=== PATIENT | female | born 1945 | race Caucasian/White ===

== ENCOUNTER → 2017-06-25 | Outpatient (CLI) | payer OTHER ==
[~2017-06-25] MED LIST: ADULT LOW DOSE81 MG PO; ASPIRIN81 M2 PO; Alprazolam PO; B-100 COMPLEX1 EAC1 PO; BUPROPION XL150 MG PO; CALCIUM MAGNES1 EAC2 PO; CELEXA40 MG PO; CENTRUM SILVER1 EAC4 PO; CIPROFLOXACIN500 M1 PO; COLACE100 MG PO; DECONGESTANT NA15 ML NASAL; FERRO-TIME325 MG PO; IBUPROFEN 200200 M1 PO; IRON159 MG PO; IRON325 PO; LEVOTHYROXINE 0.1 MG PO; LISINOPRIL20 MG PO; LOVASTATIN 20 M20 MG PO; PRAVACHOL 20 MG20 M1 PO; PRAVACHOL40 MG PO; SERTRALINE HCL50 MG PO; SYNTHROID100 MCG PO; SYNTHROID75 MCG PO; WELLBUTRIN XL150 MG PO
== END ==
LOC: RAD 09:14
DX: S92.901A Unspecified fracture of right foot, initial encounter for closed fracture (principal); X58.XXXA Exposure to other specified factors, initial encounter; Y93.89 Activity, other specified; Y92.89 Other specified places as the place of occurrence of the external cause; Y99.8 Other external cause status

== ENCOUNTER 2018-09-23 11:45 | Inpatient (IN) | payer OTHER ==
[2018-09-23] VITALS (8 sets, daily range): BP systolic 128–169; BP diastolic 65–87
[~2018-09-23] VITALS: Ht 162.6 cm; Wt 61.5 kg
--- NOTE | ~2018-09-23 | HC ---
[facility] [place] [address] CONSULTATION Name: INDY GUTIERREZ Room #: 364-P [facility] IN M.R.#: [id number] Admission: 09/23/18 ������������������ Attend Phys: Daniel Sol MD Discharge: ������������������ Date of : 44 Report #: [id number] THIS REPORT FOR: //name// CC: Daniel Sol DATE OF SERVICE: 09/23/2018 NEPHROLOGY CONSULTATION ATTENDING PHYSICIAN: Dr. Sol. REASON FOR CONSULTATION: Elevated creatinine. HISTORY OF PRESENT ILLNESS: This 72-year-old patient with a history of current and intermittent binge drinking, was found confused, covered in feces and down at home, reporting not having eaten or drunk much in the last few days, having had diarrhea and obviously confused. Her creatinine which previously we felt had been known to be normal, was 4.4, showed mildly elevated lactic acid as well. PAST MEDICAL HISTORY: Includes that of hypertension, the alcoholism as mentioned, hypothyroidism. She apparently also has celiac disease. HOME MEDICATIONS: Vitamins, iron, lovastatin 20 mg daily, sertraline 100 mg daily, lisinopril 20 mg daily, bupropion 150 mg daily, levothyroxine 0.1 mg daily, Ativan 1 mg daily and aspirin. SOCIAL HISTORY: Positive for intermittent alcoholism. No drugs or cigarettes. REVIEW OF SYSTEMS: GENERAL: She has been feeling poorly. EYES: Her vision has been okay. ENT: Hearing okay, swallows okay. Denies mouth sores. ENDOCRINE: No diabetes. She does have the hypothyroidism. RESPIRATORY: Occasionally, she says she feels short winded, but there is no pleuritic pain, cough or hemoptysis. CARDIAC: No chest pain, angina, history of heart failure. GASTROINTESTINAL: She has had poor appetite, diarrhea and nausea. GENITOURINARY: Denies dysuria, hematuria or renal stone disease. NEUROLOGIC: Confusion and some tremulousness, and anxiety. PHYSICAL EXAMINATION: GENERAL: This is a slightly confused, anxious, tremulous patient. SKIN: Very erythematous over the mid-thigh down to below the knee area and her legs. SKELETAL: Shows her to be well developed, well nourished: No amputations. [facility] [address] [place] [address] CONSULTATION Name: INDY GUTIERREZ Room #: 364-P [facility] IN [facility].#: [id number] Admission: 09/23/18 ������������������ Attend Phys: Daniel Sol MD Discharge: ������������������ Date of : 44 Report #: [id number] HEENT: Extraocular movements are full. Vision is intact. No scleral icterus. Hearing intact. Mucous membranes moist. Tongue, buccal mucosa benign. NECK: Supple, no lymphadenopathy. CHEST: Clear. HEART: Regular. ABDOMEN: Slightly tender. EXTREMITIES: Show no edema. Pulses intact. NEUROLOGIC: Just slight confusion. LABORATORY DATA: Hemoglobin 13. She had 36 segs and 35% bands. Her AST is 123, ALT 63. Sodium 143, potassium 4.8, chloride 103, bicarbonate 22, creatinine 4.4, BUN 79, bilirubin is 1, alkaline phosphatase slightly elevated at 149 and CPK 1100. Lactic acid 2.9. ASSESSMENT AND PLAN: Acute kidney injury. Creatinine is up. She is volume depleted. She is getting volume back that is appropriate. This appears to be a result of alcohol withdrawal/binge drinking with alcoholic hepatitis. I suspect we will have to give her plenty of fluids over the next several days. She will need likely some benzodiazepines possibly the vitamin banana bag-type approach and I suspect that she will get better from this with some time and we will follow her along. ��������������������������������������������� ���������������������������������������� By: ��������������������������������������������� 1820 0706 Camilo Patino MD /nt
[2018-09-23] MEDS ORDERED: ATIVAN1 MG PO (12:01)
[2018-09-23 12:13] LABS: HEMATOCRIT 37.6 % (37.0-47.0); MCH 33.1 pg (26.0-34.0); MCHC 34.5 g/dL (28.0-37.0); MCV 95.9 fL (80.0-100.0); PLATELET COUNT 163 thou/uL (150-400); RBC 3.92 mil/uL (4.20-5.00); RDW 13.2 % (10.5-14.5); WBC 9.3 thou/uL (4.0-11.0)
[2018-09-23 12:13] LABS: URINE BLOOD 2+ (Negative); URINE CLARITY CLEAR; URINE COLOR YELLOW; URINE GLUCOSE-RANDOM* NEGATIVE (Negative); URINE KETONES TRACE (Negative); URINE LEUKOCYTES NEGATIVE (Negative); URINE NITRITE NEGATIVE (Negative); URINE PROTEIN (DIPSTICK) 1+ (Negative); URINE SPECIFIC GRAVITY 1.025 (1.005-1.035); URINE UROBILINOGEN 0.2 E.U./dl (0.2-1.0)
[2018-09-23 12:16] LABS: ICTOTEST (BILI CONFIRMATORY) Negative (Negative); URINE BILIRUBIN NEGATIVE (Negative)
[2018-09-23 12:18] LABS: CREATININE 4.4 mg/dL (0.6-1.0); POTASSIUM 4.8 mmol/L (3.5-5.1)
[2018-09-23 12:21] LABS: CRYSTALS None Seen /LPF (None Seen); SQUAMOUS 0-3 Few /LPF (0-3)
[2018-09-23 12:22] LABS: FINE GRANULAR CASTS 0-3 Few /LPF (None Seen); HYALINE CASTS 0-3 Few /LPF (None Seen); URINE WBC 0-5 Rare /HPF (0-5)
[2018-09-23 12:23] LABS: BACTERIA 1-9 Few /HPF (None Seen); URINE RBC 0-2 Rare /HPF (0-2)
[2018-09-23 12:23] LABS: ALBUMIN 3.6 g/dL (3.4-5.0); TOTAL PROTEIN 7.3 g/dL (6.4-8.2)
[2018-09-23 12:52] LABS: ABSOLUTE NEUTROPHILS 6.6 thou/uL (1.4-8.2); METAMYELOCYTES 11 %; MYELOCYTES 1 %; PLATELET ESTIMATE NORMAL
--- NOTE | 2018-09-23 16:13 | EKG ---
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 : 1945 Requested By: Madelin Santana Order Number: [id number] MD: Riki Brannon Measurements Intervals Keno Rate: 100 P: CA: QRS: -22 QRSD: 166 T: 37 QT: 352 QTc: 454 Interpretive Statements Normal sinus rhythm External artifact from possible spinal stimulator Artifact in lead(s) I,II,III,aVR,aVL,aVF Compared to ECG 03/09/2016 09:52:37 Electronically Signed On 09-23-2018 16:12:58 CDT by Riki Brannon [email or web address] ��������������������������������������������� <ELECTRONICALLY SIGNED> ���������������������������������������� By: Riki Brannon MD ��������������������������������������������� 09/23/18 1612 1207 [id number] Riki Brannon MD /EPI
[2018-09-23] MEDS ORDERED: XANAX1 MG PO (16:39)
--- NOTE | 2018-09-23 16:52 | NUR ---
Assumed care of patient when arrived from ER this afternoon. Patient alert and oriented x3, confused and forgetful at times. Able to follow commands. Pleasant. Denies pain. Admission history, education and assessment completed. Medications reviewed with Dr. Sol, allergies verified. Consents signed. Fall precautions in place. Patient with tremors and extremely weak. Bed alarm arm. Bilateral SCDs applied. Patient ordered dinner; gluten-free diet. Sister at bedside throughout admission and is supportive. Too early to determine progression towards POC. Will continue to monitor.
[2018-09-23] MEDS ORDERED: SYNTHROID150 MCG PO (17:47)
--- NOTE | 2018-09-24 04:55 | NUR ---
ASSUMED PT CARE AROUND 1900. PT IS ORIENTED TO SELF AND SOMETIMES PLACE. SHE HAS BEEN MOSTLY CONFUSED DURING THE NIGHT. INCONTINENT OF BOWEL AND BLADDER. PT SLEPT PART OF THE NIGHT. RESP EVEN AND UNLABORED. PRN ANXIETY MEDICATION GIVEN AT BEDTIME. FALL PRECAUTIONS IN PLACE. PT IS FORGETFUL AND IMPULSIVE AT TIMES, TRYING TO GET OUT OF BED. PROGRESSING SLOWLY TOWARD POC GOALS. WILL CONTINUE TO MONITOR FURTHER.
[2018-09-24 05:08] VITALS: BP 173/85
[2018-09-24 05:45] LABS: ALBUMIN 2.8 g/dL (3.4-5.0); CALCIUM 8.3 mg/dL (8.5-10.1); PHOSPHORUS 3.3 mg/dL (2.5-4.9)
[2018-09-24 05:46] LABS: CREATININE 2.4 mg/dL (0.6-1.0); POTASSIUM 3.8 mmol/L (3.5-5.1)
[2018-09-24 06:16] VITALS: BP 166/80
[2018-09-24 06:18] VITALS: BP 159/90
[2018-09-24 08:13] VITALS: BP 179/80
--- NOTE | 2018-09-24 12:43 | NUR ---
Nutrition: Pt admitted with SHERIE, rhabdomyolysis, AMS. Hasn't eaten anything last 3 or 4 days due to thinking someone told her not to eat or drink. Appetite now good with >50% intake at dinner last night, breakfast and lunch today. States is having trouble eating hot foods due to lips being cracked and dry. Assisted in ordering dinner tonight and explained menu order. Hx of celiac disease. Changed diet order to include no gluten. UBW 130 lbs, current 135 lbs. Low nutrition risk.
[2018-09-24 15:43] VITALS: BP 179/81
--- NOTE | 2018-09-24 16:17 | NUR ---
ASSESSMENT: CM REVIEWED CHART AND MET WITH PATIENT AT THE BEDSIDE. PT WAS ADMITTED WITH SHERIE/DEHYDRATION. PT REPORTS SHE RECENTLY MOVED FROM A [facility] INTO AN [facility]DEP[facility]ING [facility] THE [facility]. PT REPORTS SHE HAS A CANE AND A WALKER FOR AMBULATION. PT DENIES HAVING HH IN THE PAST OR BEING TO A SNF. 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 CM DISCUSSED ROLE. PT/OT RECOMMENDING POST ACUTE CARE. CM DISCUSSED THAT THE [facility] HAS A SNF UNIT AND SHE STATES SHE WOULD PREFER TO GO THERE IF NEEDING SNF. PRODUCER DIRECTOR SENDING A REFERRAL TO THE [facility]. CM ALSO SPOKE WITH PATIENTS SON SOHAN VIA PHONE WELL PATIENTS SISTER MATTEO. CM WILL CONTINUE TO FOLLOW TO ASSIST NEEDED.
--- NOTE | 2018-09-24 16:21 | NUR ---
ASSESSMENT: CM REVIEWED CHART AND MET WITH PATIENT AT THE BEDSIDE. PT WAS ADMITTED WITH SHERIE/DEHYDRATION. PT REPORTS SHE RECENTLY MOVED OUT OF A [facility] AND INTO AN INDEPENDENT LIVING APT AT THE [facility]. PT REPORTS SHE USES A CANE AND WALKER THERE FOR AMBULATION WHEN HER LEGS FEEL TIRED. PT REPORTS SHE STILL DRIVES. 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 PT DENIES HAVING HH IN THE PAST OR BEING TO SNF/ACUTE REHAB. PT REPORTS HAVING A GRAB BAR AND SHOWER CHAIR. CM DISCUSSED ROLE. PT/OT RECOMMENDING SNF. CM DISCUSSED THAT THE [facility] HAS A SNF AND PT PREFERS TO GO THERE IF NEEDING SNF. CHARGEBACK ANALYST SENT REFERRAL. CM ALSO SPOKE WITH PATIENTS SON LORENZA WHO LIVES LOCALLY WELL PATIENTS SISTER MATTEO. CM WILL CONTINUE TO FOLLOW TO ASSIST NEEDED.
--- NOTE | 2018-09-24 16:21 | NUR ---
DISCHARGE PLANNING. PATIENT RESIDES AT THE [facility]. POST ACUTE IS RECOMMENDED AT DISCHARGE. PATIENT REQUESTS REFERRAL FAXED TO THE [facility] OF OP FOR POST ACUTE CARE NEEDS. CALL PLACED TO MILENA, THE [facility] GUEST SERVICES AMBASSADOR, PER UNIT SW TO NOTIFY OF DISCHARGE PLAN AND REFERRAL FAXED. ANTICIPATED DISCHARGE IS ONE TO TWO DAYS. MILENA TO REVIEW REFERRAL AND CONTACT CM ONCE COMPLETE. FOLLOWING TO ASSIST WITH DISCHARGE NEEDS.
--- NOTE | 2018-09-24 18:13 | NUR ---
ASsumed care of PT at 0700. PT AOX2 forgetful with mild confusion. labs improving. iv fluids infusing per order. improving at calling out before attempting to get out of bed. all fall precautions in place. several soft stools today. worked with PT/OT. sitting in chair for most of day. otherwise pleasant. hypertensive this AM - physician notified - home bp meds resumed. sinus on telemetry. will cont to monitor.
[2018-09-24 20:44] VITALS: BP 184/99
--- NOTE | 2018-09-25 05:09 | NUR ---
Patient has been confused and very impulsive throughout the shift. Patient has tried to get up multiple times on her own and sets bed alarm off even though she has been reminded to use the call light. The patient has been incontinent of urine and incontinent of stool. The patient has wet the bed 6-7 times thus far. A stool sample was sent down to rule out cdiff as the patient had several stools today from dayshift report and had 2-3 this evening. Patient placed on special contact until further notice of cdiff result. The patient has been recieving her banana bag per orders and drinking water. Bed alarm on and call light within reach.
[2018-09-25 05:19] LABS: ALBUMIN 2.9 g/dL (3.4-5.0); CALCIUM 9.1 mg/dL (8.5-10.1); PHOSPHORUS 2.5 mg/dL (2.5-4.9); POTASSIUM 3.1 mmol/L (3.5-5.1)
[2018-09-25 05:20] LABS: CREATININE 1.3 mg/dL (0.6-1.0)
[2018-09-25 05:26] VITALS: BP 167/83
[2018-09-25 07:40] VITALS: BP 165/89
[2018-09-25 13:00] VITALS: BP 173/90
--- NOTE | 2018-09-25 14:04 | NUR ---
SW reviewed chart and spoke with nursing and attending physician. Pt is progressing towards goals for discharge. Discharge to [facility] is anticipated in 1-2 days. [facility]F confirmed they are able to accept pt when she is ready for discharge. BASHIR is following to assist as needed with discharge planning.
[2018-09-25] MEDS ORDERED: IBUPROFEN 200200 M1 PO (14:56)
[2018-09-25] MEDS ORDERED: FISH OIL 1,001000 M2 PO (14:56)
--- NOTE | 2018-09-25 17:00 | NUR ---
Assumed care of Pt at 0700. Pt AOx2 forgetful and episodes of confusion. impulsive at times, making several attempts to get up without calling. frequently reminded to call out, and occasionally does. other times she requests for bed alarm to be turned off. incontinent at times. frequent soft stools. cdif results pending. sinus on telemetry. blood pressures remain high - physician aware. all fall precautions in place. kidney function showing good improvement. iv fluids infusing per order. good progress toward poc goals.
[2018-09-25 20:11] VITALS: BP 174/92
[2018-09-26 00:09] VITALS: BP 184/98
[2018-09-26 00:48] VITALS: BP 167/92
[2018-09-26 05:14] VITALS: BP 158/92
--- NOTE | 2018-09-26 06:22 | NUR ---
Pt. very impulsive and forgetful when awake. Frequent reorientation given. Bed alarm on. Scheduled potassium given for hypokalemia. Up with assist to commode. Banana bag infusing per order. Will continue to monitor.
[2018-09-26 08:01] VITALS: BP 158/92
--- NOTE | 2018-09-26 09:45 | NUR ---
Assumed patient care at 0700. alert to self. impusive out of bed and room that try to go home. pulled iv out. patient will dc to 528 soon.
--- NOTE | 2018-09-26 09:56 | NUR ---
ON-GOING ASSESSMENT: CM REVIEWED CHART AND SPOKE WITH ATTENDING. HE [facility] AND SPOKE WITH DR. MARIN AND PT WILL BE ADMITTED TO [facility]. DR. RIVAS HAD REACHED OUT TO PATIENTS SON/DPOA CRISTAL [phone]. CM ATTEMPTED TO CONTACT CRISTAL BUT UNABLE TO REACH AND VM WAS LEFT. CM ALSO SPOKE WITH PATIENTS OTHER SON LORENZA WHO STATES HE WAS AWARE OF THE DISCHARGE PLAN TO [facility] STATING HE HAD SPOKEN WITH HIS BROTHER CRISTAL WHO IS ALSO A PHYSICIAN AND SPOKE WITH DR. RIVAS. PT IS AGREEABLE TO PLAN. CM WILL CONTINUE TO FOLLOW TO ASSIST NEEDED.
== END 2018-09-26 10:28 | DRG 682 ==
LOC: ER 11:45 → 3W 14:16 → EROBS 14:16 → 3W 15:26 → ENTRNSPT 09-26 09:59 → EDTRNSPTSTS 09-26 10:06 → 3W 09-26 10:28
PROVIDERS: Emergency Medicine; Hospitalist; ADMIT Family Medicine
DX: N17.0 Acute kidney failure with tubular necrosis (principal); G93.41 Metabolic encephalopathy; M62.82 Rhabdomyolysis; E87.2 Acidosis; F10.10 Alcohol abuse, uncomplicated; I10 Essential (primary) hypertension; E78.5 Hyperlipidemia, unspecified; F32.9 Major depressive disorder, single episode, unspecified; F41.9 Anxiety disorder, unspecified; E03.9 Hypothyroidism, unspecified; Z88.8 Allergy status to other drugs, medicaments and biological substances; E86.0 Dehydration; F03.90 Unspecified dementia, unspecified severity, without behavioral disturbance, psychotic disturbance, mood disturbance, and anxiety; E86.9 Volume depletion, unspecified; K90.0 Celiac disease; Z79.82 Long term (current) use of aspirin; Z79.899 Other long term (current) drug therapy
CPT/HCPCS: 10879

== ENCOUNTER 2018-09-26 11:04 | Inpatient (IN) | payer OTHER ==
[~2018-09-26] VITALS: Ht 160 cm; Wt 60.4 kg
[~2018-09-26 11:04] MED LIST changes: +ATIVAN1 MG PO; +FISH OIL 1,001000 M2 PO; +SYNTHROID150 MCG PO; +XANAX1 MG PO
[2018-09-26 13:33] VITALS: BP 130/70
--- NOTE | 2018-09-26 14:04 | NUR ---
PATIENT ADMITTED TO ROOM 528B, ORDER DR. FERNANDES FOR SCHIZOPHRENIA. VSS, A&O X 3, WEIGHT 132.9 POUNDS, HEIGHT 5 FEET 3 INCHES, PER BED SCALES AND PATIENT'S REPORT R/T HEIGHT. ASSESSMENT WILL BE COMPLETED BY Corrine
[2018-09-26 20:12] VITALS: BP 166/91
--- NOTE | 2018-09-27 03:31 | NUR ---
ASSUMED CARE @ 19:15. IN ROOM IN BED FOR ASSESSMENT HRRR, LUNGS CTA ALL CLAROS, ABD SOUNDS HYPER ACTIVE. REPORTS BM TODAY. ORIENTED X4. AGE IS 73, TURNS 74 Y.O. ON SaturdaySEPTEMBER 29. DIET IS REGULAR CONSISTENCY, GLUTEMN FREE DIET. REPORTS IS HERE IN THE HOSPITAL D/T A FALL ON THE FLOOR, INJURING HER KNEE. USES WALKER TO AMBULATE, CONTINENT OF B&B. DOES NOT MENTION ALCOHOL ABUSE OR DEPRESSION. 2100 MEDS TAKEN WITH PUDDING TO HELP SWOLLOW LARGE TABLETS. WILL CONTINUE TO MONITOR.
--- NOTE | 2018-09-27 06:25 | NUR ---
SLEPT WELL ALL NOC. SLEPT TOTAL OF 11.8 HOURS.
[2018-09-27 07:00] VITALS: BP 108/77; BP 121/75
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
--- NOTE | 2018-09-27 12:52 | NUR ---
ASSUMED PATIENT CARE AT 0700; PATIENT UP IN DR AT THAT TIME, AWAITING BREAKFAST. PATIENT ATE 100% OF BREAKFAST, ALSO 100% OF LUNCH. RELAXED MOOD, HAPPY AFFECT, NO BEHAVIORS AT THIS TIME. NEW ORDER PER ROB SKELTON FOR XANAX. FIRST DOSE GIVEN AT APPROXIMATELY 10:45.
[2018-09-27 21:02] VITALS: BP 141/87
--- NOTE | 2018-09-28 04:59 | NUR ---
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
[2018-09-28 07:50] VITALS: BP 99/76
--- NOTE | 2018-09-28 11:50 | NUR ---
ASSUMED PATIENT CARE AT 0700. PATIENT AWAKE IN HER ROOM AT THAT TIME. PRESENTED FOR BREAKFAST, ATE 100% OF MEAL. RELAXED AFFECT, NO BEHAVIORS, SUCH AGITATION, AT THIS TIME. INTERACTIVE BEHAVIOR, CONVERSIVE WITH A MALE PEER. COMPLIANT WITH MEDICATIONS, DID NOT TRY TO GET ANY EXTRA MEDICATIONS AT THIS TIME, SPECIFICALLY XANAX. CONTINUE TO MONITOR.
--- NOTE | 2018-09-28 12:02 | NUR ---
Pt was alert and oriented during the assessment. Pt seemed nervous and jittery during the assessment. Pt denied ETOH abuse stating she stopped drinkin a few weeks ago. When asked why Pt stated, " with my ex 's passing I feel I need to be here for my boys and I need to be health for that". Pt admitted to drinking vodka and wine daily prior to stopping. Pt denied any withdrawl symptoms such as seizures or tremors. Pt stated she living in an independen living apartment at the [facility]. Pt did not believe she needed to transition to assisted living or fci care. Pt stated she is able to continue being independent. Pt denied recieving any outpt services to assist with ETOH abuse. Pt stated " I have never been comfortable talking to a therapist, I find it hard to open up". Pt reported her PCP, Dr. Sol, prescribes her Xanax for anxiety. When asked about her depression diagnosis, Pt stated, " Well its's more anxiety, not depression". Pt did not seem to be honest concerning her mental health or her hx of alchol abuse. Pt was not open to any out patient services. Pt also denied having kidney failure stating, " No I don't have Kidney Failure, I believe it was just dehydration". Pt had no other questions or concerns during this assessment
[2018-09-28 20:28] VITALS: BP 133/83
[2018-09-29 02:37] VITALS: BP 133/83
--- NOTE | 2018-09-29 02:51 | NUR ---
PT OUT IN DAY AREA WITH PEERS, INTERACTING APPROPRIATLY. A LITTLE TENSE, AND REMINDE ME SHE WANTED HER MEDS SOON POSSIBLE, SHE WAS GOING TO BED TO READ. SPECIFICALLY WANTED XANAX TO "HELP ME SLEEP". SLEPT WELL THROUGH THE NIGHT TO THIS POINT.
--- NOTE | 2018-09-29 10:37 | NUR ---
[id number]: Report rec from [facility] shift, care assumed. Ambulatory with walker in [place] to DR, feeds self, appetite good. Takes meds whole w/o difficulty. Mild anxiety noted, pt request Xanax after a.m. therapy group. Denies pain or discomfort at this time.
[2018-09-29 19:41] VITALS: BP 134/75
--- NOTE | 2018-09-30 01:49 | NUR ---
SITTING IN DAYROOM WITH PEERS UPON INITIAL ASSESSMENT THIS PM-SUPERFICIAL BUT PLEASANT WHEN ENGAGED IN 1;1 WITH NURSING STAFF-DENIES PAIN/DISCOMFORT-CONSTRICTED AFFECT AND GUARDED AT TIMES. DOES REPORT ANXIETY RATED A N8 ON 1-10 SCALE-REQUESTED/RECEIVED PO PRN XANAX 0.25MG AT 2029 ALONG WITH HS MEDS-TO BED AT 0-DENIES SI/SH/HI
--- NOTE | 2018-09-30 08:20 | NUR ---
ADM XANAX 0.25MG PO PER PATIENT REQUEST.
[2018-09-30 08:30] VITALS: BP 131/76
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
--- NOTE | 2018-09-30 12:20 | NUR ---
PSYCHOSOCIAL ASSESSMENT Diagnosis: MAJOR NEUROCOGNITIVE DISORDER Admit Date: 09/26/18 Psychiatrist: DENA Symptoms associated with current admission: Hallucinations Others Presenting problems: Pt was delusional and hallucination. Depression and alcohol. Precipitating Factors: Non-compliance psychothx Alcohol/drug use Non-compliance medication Comments: Pt has been doing alochol for several years. History of High Risk Behavors: Other Suicide Risk Factors: A A-Signs of alcohol/substance abuse w/ suicide ideation B-Recent suicidal thoughts or attempts C-Recent thoughts or attempts of harming someone else D-Altered mental status due to psychiatric/chem dep etiology E-The behavior exists - add comment PSYCHIATRIC HISTORY Age of onset: 73 Prior hospitalizations: Denies hx hospitalization Hospital names and dates, if available: Pt denies prior hospitalization Most Recent Outpatient HX: Psychiatrist Additional information: Legal Status: Voluntary Guardian/Conservatorship type: DPOA Contact name: Dejon Serrano Contact phone: Other: Name: Phone: Other legal issues: (Arrests/convictions Current Status) DUI P.O. Name and Phone #: FAMILY HISTORY Place of : [place], [place] Raised in: [place], [place] # Siblings & order: Pt has 3 sibilings, and second Describe relationships within family of origin: Pt is very close to her sister and brothers. Pt has strong relationship with her family. Any psychiatric or substance abuse problems within family of origin: Y Has patient been sexually or physically abused, neglected or been taken advantage of financially? N Has the abuse been reported? N Other pertinent family information: Marital history/significant relationships: Domestic violence: N Children ages & who is caring for them: Pt has two choldren Is child welfare involved? N Drug history: Pt being drinking Rum Alcohol Use: Yes, current Frequency: Weekly Quantity: bottle a couple days Have you ever felt you ought to Cut down on drinking? Have people Annoyed you by criticizing your drinking? Have you ever felt bad or Guilty about your drinking? 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 AXIS SCREENING TOOL [place] I Mood Disorders: Depression [place] II Personality/Mental Retardation: [place] III Medical Impairment: HTN [place] IV Problem(s) with: Primary support group Other psych/environ prob [place] V: 50-Serious w/impairment Additional [place] comments: PERSONAL BACKGROUND Relevant cultural issues (ethnicity, values, beliefs, spiritual): Spiritual Muslim: Pentecostal Importance of faith to patient: High What hobbies/interests does the patient have? Read Cross words puzzle Cards Sexual orientation (relevant impact to current treatment): Heterosexual : Where did you serve: Branch of service: Rank: Discharge status: Are you a combat ? N Occupational/Work: Do you work? N Do you want to work? N How many hours do you work/week? 0 How many jobs have you had in the past 5 years? 0 Do you need assistance finding a job? N Does the patient need assistance in job training? N Source of income: SSI Does patient have a Payee? Y Payee name: Alex Serrano Approximate monthly income: 1000 Does patient have adequate funds for next 30 days? 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 is living: [facility] Does the patient plan to continue there after DC? Yes Patient lives with: Alone Will family/significant other be involved in treatment? Other community support services utilized: none reported Support System Available (family/friend) Name: Jade Wagner Relationship: Sister Name: Raul Serrano Phone: Relationship: SON Name: Jade Wagner Phone: Relationship: Sister Patient strengths: Family support Motivated Insight Patient's assets: Positive support system Verbal Patient's weaknesses: Chronic hx mental illness Health problems Additional weaknesses: Pt is very depressed, and utilize alcohol as coping skill. Patient's perception of current rn social services/case management needs: Pt stated that SS is someone that helps when need assistance. PRELIMINARY DISCHARGE PLAN Discharge plan/Community resource contacts: Pt will be discharge to [facility] Discharge needs: Pt sister Jade will transport pt back to the facility. Problems anticipated on discharge: Compliance w/ med regimen Comments: (factors affecting DC plan/pt. response/interventions) Pt will need a Php program for outpatient services
--- NOTE | 2018-09-30 17:45 | NUR ---
DR. FERNANDES TALKED WITH PATIENT AND SON ABOUT CT RESULTS. PT NOT ANXIOUS ABOUT HER PLAN OF DISCHARGED. PT PARTCIPATED IN GROUPS TODAY.
[2018-09-30 19:56] VITALS: BP 133/84
--- NOTE | 2018-09-30 23:04 | NUR ---
VISIBLE IN [place] INTERACTING WITH PEERS-WATCHING TV UPON INITAL ASSESSMENT THIS PM-DENIES C/O PAIN/DISCOMFORT-FULL RANGE AFFECT-DESCRIBES MOOD "RESTLESS-I'M READY TO GET OUT OF HERE -I'M NOT REALLY SURE WHAT THE PLAN IS AND I DON'T LIKE THAT" DOES RESPOND TO SUPPORT/REASSURANCE FROM NURSING-REPORTS FEELING "FRUSTRATED" WITH UNIT RULES/RESTRICTIONS ECT-BUT IS COMPLIENT/COOPERATIVE NO PHYSICAL OR VERBAL AGITATION NOTED OR REPORTED-REQUSTED AND RECEIVED XANAX 0.25MGPO PRN AT 2030 FOR ANXIETY RATED 6 ON 1/10 SCALE
[2018-10-01 07:14] LABS: HIV ANTIBODY Non Reactive (Non Reactive)
[2018-10-01 07:42] VITALS: BP 137/65
--- NOTE | 2018-10-01 08:34 | NUR ---
ADM XANAX 0.25MG PO FOR ANXIETY.
[2018-10-01 09:30] VITALS: BP 137/65
--- NOTE | 2018-10-01 09:30 | NUR ---
PT TOOK MEDS THIS AM WITHOUT ANY ISSUES. PT DENIES ANY PAIN. PT LUNGS CLEAR AND ON ROOM AIR.
--- NOTE | 2018-10-01 15:32 | NUR ---
PT HAS BEEN PARTICIPATING IN GROUPS TODAY. PT STILL PATIENT ABOUT BEING HERE.
[2018-10-01 17:07] LABS: SYPHILIS AB Negative (Negative)
--- NOTE | 2018-10-01 17:30 | NUR ---
PT UPSET ABOUT ANOTHER PATIENT STATING IF YOU DON'T CALL POLICE I WILL. PT STATED WHY ARE YOU CONDONING HIS BEHAVIOR. PT STATED THE PATIENT HAS BEEN IN HER ROOM. WILL KEEP HER ROOM DOOR SHUT UNTIL PT NEEDS TO USE BATHROOM.
[2018-10-01 19:46] VITALS: BP 146/72
--- NOTE | 2018-10-01 23:45 | NUR ---
REPORTS DAY "GOOD" " A LITTLE NERVEWRACKING I TOOK ALL THESE TESTS AND I AM NOT SURE HOW I DID" IS VISIBLE IN DAYROOM INTERACTING WITH PEERS-DURING 1;1 REPORTS FEELING UPSET THAT SHE IS STILL HERE AND ISN'T SURE SHE "TRUSTS" THE DR./HER SONS TO DETERMINE WHAT DC PLAN IS BEST FOR HER-MILDLY SUSPICIOUS/GUARDED STATING "I JUST DON'T WANT THEM TO PULL SOMETHING OVER ON ME"XANAX 0.25MGPOPRN AT 2100 FOR ANXIETY. DENIES C/O PAIN/DISCOMFORT. FULL RANGE AFFECT
[2018-10-02 07:30] VITALS: BP 127/72
--- NOTE | 2018-10-02 09:44 | NUR ---
SW schedule a family meeting on today, at 4:00pm. SW notified th US to allow pt to have phone to conference in the nephew who is the pt DPOA. BASHIR will follow-up with the pt upon discharge.
[2018-10-02 10:03] VITALS: BP 150/94
--- NOTE | 2018-10-02 12:48 | NUR ---
PATIENT PLEASANT AND COOPERATIVE. MAKES NEEDS KNOWN. WELL GROOMED AND NEAT IN APPEARANCE. AMBULATORY AND HANDLES OWN ADL'S VERY WELL. GOOD APPETITE - MED COMPLIANT. DID CONVEY GRIEVANCE ABOUT INABILITY TO GO BACK TO [facility]. CLAIMS DOES NOT HAVE ASSISTED LIVING AT HER FACILITY. NO HAPPY ABOUT THIS. STATED HAD FEVER BLISTER ON LOWER LIP THAT WAS PAINFUL AND SORE. ADVISED DR. FERNANDES AND ENTERED ORDER FOR DOCOSANOL OINMENT TID. APPLIED FIRST TREATMENT AT 0930. STATED DISCOMFORT IMPROVED. AMBULATORY - GOAL TODAY TO TAKE SHOWER TODAY WITHOUT MESSING HAIR UP - NO AVAILABLE SHOWER CAP.
[2018-10-02 20:13] VITALS: BP 140/80
--- NOTE | 2018-10-02 20:23 | NUR ---
ASSUMED CARE @ 19:15. SITTING IN DAY ROOM ON THE COUCH WATCHING TV WITH PEERS. COOPERATED IN ASSESSMENT. HRRR, LUNGS CTA ALL CLAROS, ABD NORMO X4 Q. WILL CONTINUE TO MONITOR.
--- NOTE | 2018-10-02 21:55 | NUR ---
ABREVIA OINTMENT PROVIDED FOR COLD SORE. PT TOOK DEPAKOTE WITH WATER WITHOUT DIFFICULTY. ASKED ABOUT XANAX, AND WHEN TOLD IT HAD BEEN DISCONTINUED, SAID THAT SHE HAD TAKEN IT FOR YEARS, AND FEELT LIKE SHE CONTINUES TO NEED IT. WILL CONTINUE TO MONITOR.
[2018-10-02 21:59] VITALS: BP 140/80
--- NOTE | 2018-10-03 00:12 | NUR ---
NEW ORDERS ACK FOR LIGAGLIPTIN 5 MG FOR 0900, CODE STATUS: NO CODE, MONITOR BLOOD GLUCOSE AC/HS. CONSULT PHYSICIAN LAURENCE MCNULTY. EVA TOBAR N.P. ADVISED OF CONSULT @ 00:05. SHE ADVISED THAT DR MCNULYT WILL CONTINUE TO FOLLOW PATIENT, AND NO FURTHER NOTIFICATION IS NECESSARY.
--- NOTE | 2018-10-03 06:38 | NUR ---
Slept 6 hours NOC.
[2018-10-03 07:00] VITALS: BP 144/70
[2018-10-03 09:19] VITALS: BP 144/70
--- NOTE | 2018-10-03 09:49 | NUR ---
BASHIR left a voicemail with Eloisa to schedule transport for pt discharge. BASHIR provided contact information to return phone. BASHIR will follow-up with the facility upon discharge.
--- NOTE | 2018-10-03 09:50 | NUR ---
ASSUMED CARE OF PT APPROX 0715, SHE'S A&0X4, AMB STEADY, WAS IN DAY ROOM READING AT BEGINNING OF SHIFT. EXPRESSES DELIGHT AT BEING DISCHARGED THIS AFTERNOON. DENIES ANY PAIN OR NEED FOR TYLENOL PRN, BM IS UNK, AND NO DISTRESS W/GI SYSTEM AT THIS TIME. REPORT OF XANAX HAVING BEEN TAPERED AND DISCONTINUED LAST NIGHT WHICH GAVE PT GREAT DISTRESS. WILL CONTINUE TO MONITOR. IS CURRENTLY IN DAY ROOM PARTICIPATING IN GROUP.
[2018-10-03] MEDS ORDERED: ACCUPRIL40 MG PO (13:58)
[2018-10-03] MEDS ORDERED: DEPAKOTE ER500 MG PO (14:02)
[2018-10-03] MEDS ORDERED: ASPIRIN81 M2 PO (14:02)
[2018-10-03] MEDS ORDERED: WELLBUTRIN XL150 MG PO (14:03)
[2018-10-03] MEDS ORDERED: SYNTHROID75 MCG PO (14:04)
[2018-10-03] MEDS ORDERED: ABREVA2 GM TOP (14:05)
--- NOTE | 2018-10-03 14:14 | NUR ---
Patient Name: INDY GUTIERREZ Admission Date: 09/26/18 DISCHARGE PLAN: Pt will be discharging to [facility]. Care Assessment: Pt was assessed by Dr. Sinha, and diagnosed with Major Neurocognitve Disorder, and Substance Abuse with Unspecified Depression. Level II Assessment: None Transportation: Pt will be transported to by pt sister Jade. Special Instructions/Notes: Pt will have continuance care through [facility] on November 10, 2018 at 1:30pm. Pt will have follow-up with Dr. Díaz on October 17, 2018 at 9:45am. DISCHARGE TO FACILITY: Assisted Living Facility: [facility] Fax: Address: [address] [place] [address] Contact Name: Eloisa PCP: FRANCESCA Psychiatrist: [facility].
--- NOTE | 2018-10-07 09:25 | D ---
[facility] [place] [address] DISCHARGE SUMMARY Name: INDY GUTIERREZ Room #: 528B-B [facility] IN ..#: [id number] Admission: 09/26/18 ������������������ Attend Phys: Valente Jama DO Discharge: 10/03/18 ������������������ Date of : 43 Report #: [id number] THIS REPORT FOR: //name// CC: Valente Sol DATE OF SERVICE: 10/03/2018 INPATIENT PSYCHIATRIC DISCHARGE SUMMARY ATTENDING PHYSICIAN: Valente Jama DO VENDOR MANAGEMENT SPECIALIST: Daniel Sol MD DISCHARGE DIAGNOSES: Major neurocognitive disorder, unspecified, mild degree, without behavioral disturbance; unspecified depression, improved; substance use disorder for alcohol, moderate degree. DISCHARGE PLAN: At the request of the patient and her 2 sons, she is discharged back to independent living at the [facility]. It should be noted recommendation was made by this author for discharge to assisted living level of care, which was declined by the patient and her sons including 1 as her DPOA. DISCHARGE MEDICATIONS: The patient's current medication regimen is as follows: Lisinopril 20 mg p.o. daily for hypertension, aspirin 81 mg p.o. daily, Depakote ER 750 mg p.o. at bedtime, bupropion hydrochloride 150 mg p.o. daily, levothyroxine 75 mcg p.o. daily; docosanol which is Abreva 2 grams cream; 1 gram topical t.i.d. for an additional 5 days for fever blister. The patient should not take any more benzodiazepines. The patient needs to maintain absolute abstinence from alcohol. The patient was warned that the combination of alcohol, potential for alcohol withdrawal as well as bupropion raise possibility of a seizure substantially and that needs to be considered in her behaviors. Presently, the patient is declining to participate in Alcoholics Anonymous. Followup is with psychiatrist at [facility] within 4 weeks. Neuropsychiatric consult on November 10 at 1:30 p.m. Follow up with Dr. Sol on 10/17/2018 at 9:45 a.m. DIET: Maintain regular diet. REASON FOR ADMISSION: As follows: The patient was admitted medically in [facility] area. She became delirious, was exit seeking. Dr. Sol referred her for admission. HOSPITAL COURSE: The patient was admitted to Geriatric Psychiatry Unit. The tapering of her benzodiazepine commenced. Neuropsychological testing was done by Dr. Mohamud, which found the mild dementia. One of her sons visited [address] [address] DISCHARGE SUMMARY Name: INDY GUTIERREZ Raffaele Room #: 528B-B [facility] IN [facility].#: [id number] Admission: 09/26/18 ������������������ Attend Phys: Valente Jama DO Discharge: 10/03/18 ������������������ Date of : 43 Report #: [id number] frequently is Alex. Her other son, Carlos, who is a metal pathologist in [place] is awaited conference, but maintained telephone contact. Also, her sister, Jade, visited, so she had significant family support. Laboratories were limited from the psychiatric admission as they had been none during the medical admission. B12 level was actually supratherapeutic at 2586, vitamin D 39.5. Valproic acid level was 57. Actually, Dr. Sol had started her on Depakote. HIV was negative. Syphilis was negative. This was all done as part of dementia workup. Neuroimaging revealed a fairly normal appearing brain for female in her mid 70s. Her son who was actually formally radiologist had believed he has looked at some brain scans of her in the past. The only thing I would somewhat question is there is some subtle evidence of ventricular dilatation due to chronic alcoholism; however, this is just this author's opinion. MENTAL STATUS EXAMINATION: Vital Signs: On the day of discharge, temperature 36.9, pulse 86, respirations 16, BP 144/70. This is a well-developed, well-nourished female appearing her stated age. Attention intact. Concentration intact. Speech normal rate, rhythm and tone. Thought process is linear and goal directed. Thought content focused on discharge. No psychomotor agitation, no psychomotor retardation. Mood and affect congruent, euthymic, fair range. Denies SI, HI. Denies hopelessness and helplessness. Denies homicidal intent or plan. Memory not formally tested today. Insight fair. Judgment is fair to limited. Fund of knowledge average range. Additional notes, both the SLUMS and the MoCA on this admission were 17 out of 30 and 19 out of 30 respectively. Prognosis for this patient is guarded given the fact that she is returning to [place], has major neurocognitive disorder, has a history of alcoholism and has a less than optimal motivation for dual diagnosis treatment at this point. Supposedly as well, there is a psychotherapist to see the patient that facility has been asked to arrange. ��������������������������������������������� <ELECTRONICALLY SIGNED> ���������������������������������������� By: Valente Jama DO ��������������������������������������������� 10/07/18 0925 [id number] Valente Jama DO /nt
== END 2018-10-03 14:30 | disposition home or self-care (01) | DRG 57 ==
LOC: SBH 11:04
PROVIDERS: ADMIT Psychiatry & Neurology Psychiatry
DX: G30.9 Alzheimer's disease, unspecified (principal); N17.9 Acute kidney failure, unspecified; M62.82 Rhabdomyolysis; F02.81 Dementia in other diseases classified elsewhere, unspecified severity, with behavioral disturbance; F01.51 Vascular dementia, unspecified severity, with behavioral disturbance; F32.9 Major depressive disorder, single episode, unspecified; I10 Essential (primary) hypertension; E78.5 Hyperlipidemia, unspecified; E03.9 Hypothyroidism, unspecified; Z96.642 Presence of left artificial hip joint; F41.1 Generalized anxiety disorder; Z88.8 Allergy status to other drugs, medicaments and biological substances; Z87.81 Personal history of (healed) traumatic fracture; Z98.49 Cataract extraction status, unspecified eye; Z79.82 Long term (current) use of aspirin; Z79.899 Other long term (current) drug therapy
CPT/HCPCS: 10880

== ENCOUNTER 2019-03-05 07:00 | Inpatient (IN) | payer OTHER ==
[2019-02-23 13:39] LABS: URINE BILIRUBIN NEGATIVE (Negative); URINE BLOOD NEGATIVE (Negative); URINE CLARITY SL CLOUDY; URINE COLOR YELLOW; URINE GLUCOSE-RANDOM* NEGATIVE (Negative); URINE KETONES TRACE (Negative); URINE NITRITE-REFLEX NEGATIVE (Negative); URINE PROTEIN (DIPSTICK) NEGATIVE (Negative); URINE SPECIFIC GRAVITY 1.015 (1.005-1.035); URINE UROBILINOGEN 0.2 E.U./dl (0.2-1.0)
[2019-02-23 13:44] LABS: HEMATOCRIT 35.4 % (37.0-47.0); HEMOGLOBIN 12.1 gm/dL (12.0-15.0); MCH 32.7 pg (26.0-34.0); MCHC 34.2 g/dL (28.0-37.0); MCV 95.7 fL (80.0-100.0); RBC 3.69 mil/uL (4.20-5.00); RDW 13.1 % (10.5-14.5); WBC 4.1 thou/uL (4.0-11.0)
[2019-02-23 13:46] LABS: URINE LEUKOCYTES-REFLEX 3+ (Negative)
[2019-02-23 13:48] LABS: ALBUMIN 4.1 g/dL (3.4-5.0); CALCIUM 9.8 mg/dL (8.5-10.1); CREATININE 1.2 mg/dL (0.6-1.0); POTASSIUM 4.2 mmol/L (3.5-5.1)
[2019-02-23 13:52] LABS: PROTIME 10.5 Seconds (9.3-11.4)
[2019-02-23 13:56] LABS: BACTERIA-REFLEX >30 Many /HPF (None Seen); CASTS None Seen /LPF (None Seen); CRYSTALS None Seen /LPF (None Seen); SQUAMOUS None Seen /LPF (0-3); URINE RBC None Seen /HPF (0-2); URINE WBC-REFLEX >25 Many /HPF (0-5)
[~2019-03-05] VITALS: Ht 162.6 cm; Wt 56.2 kg
[~2019-03-05 07:00] MED LIST changes: +ABREVA2 GM TOP; +ACCUPRIL40 MG PO; +ASPIR 8181 MG PO; +BUPROPION XL300 MG PO; +DEPAKOTE ER500 MG PO; +LOVASTAT40 PO; +MULTIVITAMINS PO; +SYNTHROID125 MC1 PO; +ZOLOFT100 MG PO
[2019-03-05 09:26] VITALS: BP 112/59
[2019-03-05 16:44] VITALS: BP 123/64
[2019-03-05 20:19] VITALS: BP 108/62
--- NOTE | 2019-03-05 20:47 | NUR ---
PATIENT ALERT AND ORIENTED WITH SISTER FELIPE AT BEDSIDE ARRIVING ON 4S UNIT ROOM 436 ABOUT 1700. HOME MEDS PRESCRIBE BY NANCY AT BEDSIDE. PATIENT TO REVIEW WITH DR. RIVAS IN THE AM. REVIEWED HIP PRECAUTIONS WITH PATIENT AND PATIENT URINATING. SEND UA TO LAB. PATIENT EATING DINNER. PATIENT DIDN'T WANT PAIN MEDS WHEN AFTER ARRIVING ON 4S UNIT.
[2019-03-05 21:04] LABS: URINE BILIRUBIN NEGATIVE (Negative); URINE BLOOD NEGATIVE (Negative); URINE CLARITY CLEAR; URINE COLOR YELLOW; URINE GLUCOSE-RANDOM* NEGATIVE (Negative); URINE KETONES NEGATIVE (Negative); URINE LEUKOCYTES-REFLEX TRACE (Negative); URINE NITRITE-REFLEX NEGATIVE (Negative); URINE PROTEIN (DIPSTICK) NEGATIVE (Negative); URINE UROBILINOGEN 0.2 E.U./dl (0.2-1.0)
[2019-03-06 00:40] VITALS: BP 120/63
[2019-03-06 03:41] LABS: HEMATOCRIT 25.2 % (37.0-47.0); HEMOGLOBIN 8.4 gm/dL (12.0-15.0); MCH 31.9 pg (26.0-34.0); MCHC 33.4 g/dL (28.0-37.0); MCV 95.4 fL (80.0-100.0); RBC 2.64 mil/uL (4.20-5.00); RDW 12.7 % (10.5-14.5); WBC 5.8 thou/uL (4.0-11.0)
--- NOTE | 2019-03-06 04:34 | NUR ---
ASSUMED CARE AROUND 1899. AXOX4. S/P R HIP OA. ELGIN DRESSING CDI. HEMOVAC INTACT DRANING BRIGHT RED BLOOD. IN THE BEGINNING OF THE SHIFT, PT REFUSED SCD THAT THEY HURT AND SHE DOES NOT WANT THEM. EDUCATED ABOUT THE IMPORTANCE ABOUT DVT PREVENTION. 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 LATER ON PT CALLED AND STARTED SCREAMING THAT [facility] ARE TOO TIGHT AND HOT THAT IT'S MAKING PT SO UPSET. TOOK [facility] AND ADVISED PT OF ANTI-EMBOLISM PREVENTION. PER PT, BEING AT THE HOSPITAL USED TO BE NOT LIKE THIS THAT PT DOES NOT WANT THEM ON. EARLIER ON SOME MEDICATIONS WERE DISCOVERED IN PT ROOM DURING ROUNDING, TOLD PT THAT ALL MEDICATIONS HAVE TO SENT DOWN TO PHARMACY. PT GOT UPSET SAYING THAT PT WILL SEND MEDS HOME IN AM. ADVIDED PT NOT TO USE THEN THAT PT'S SUPPOSED TO USE ONLY MEDICATIONS THAT ARE PROVIDED BY INPATIENT PHARMACY. PT VERBALIZED UNDERSTADING AND HOME MED WERE PUT AWAY SO FAMILY MEMBER CAN TAKE THEM HOME IN AM. PT WAS PUT ON ISOLATION FOR RECENT POSITIVE RESULTS ON MRSA. PT AGAIN GOT UPSET THAT NO ONE TOLD PT ABOUT THE INFECTION AND PT DOES NOT UNDERSTAND WHY NO ONE IS EXPLAINING TO HER ABOUT ALL THE THINGS PT'S NOT HAPPY ABOUT.
[2019-03-06 04:52] VITALS: BP 124/62
--- NOTE | 2019-03-06 08:32 | NUR ---
INITIAL ASSESSMENT: Pt evaluated for d/c planning needs. Reviewed chart and spoke with nurse and pt. Pt is alert and oriented. Pt lives in independent apartment at [facility]. Pt was independent with ADL's and has walker and cane at home. Pt has not had home health. Pt plans to go to [facility] on d/c from hospital. Asked production control planner to fax referral to [facility]. Will remain available to assist as needed. [facility] [phone]
[2019-03-06 08:45] VITALS: BP 129/62
--- NOTE | 2019-03-06 12:44 | O ---
[facility] [place] [address] OPERATIVE REPORT Name: INDY GUTIERREZ Room #: 436-P [facility] IN M.R.#: [id number] Admission: 03/05/19 Attend Phys: Alex Black MD Discharge: Date of : 43 Report #: [id number] THIS REPORT FOR: //name// CC: Alex Black Daniel Sol DATE OF SERVICE: 03/05/2019 PREOPERATIVE DIAGNOSIS: End-stage degenerative arthritis, right hip. POSTOPERATIVE DIAGNOSIS: End-stage degenerative arthritis, right hip. PROCEDURE: Right total hip arthroplasty. SURGEON: Alex Black MD INDICATIONS: This slender, fit, active and independent 73-year-old female complains of progressive right hip pain. She has had symptoms for quite some time, which are now unresponsive to conservative measures. She has decided to go ahead with total hip replacement. X-rays confirm moderate generalized joint space narrowing and spurring at the margin of the acetabulum consistent with end-stage degenerative arthritis. DESCRIPTION OF PROCEDURE: The patient was taken to the operating room where she was placed under general anesthesia. Prophylactic intravenous antibiotics were administered. She was turned to the left lateral decubitus position. The right hip, thigh and leg were meticulously prepped and draped. A slightly curving posterolateral skin incision was made. This was carried through subcutaneous tissues and gluteus to expose the posterior aspect of the hip joint. The short external rotators and capsule were taken down and tagged with several #1 Tevdek sutures. The hip was dislocated posteriorly. Marked degenerative change on the femoral head and acetabulum was noted. A femoral neck osteotomy was performed. The canal was then prepared with reamers and hand broaches. The Linares and Nephew hip system was utilized. The size 12 femoral component seemed to fit nicely. The calcar was trimmed down to an appropriate level. The trial femoral component was removed and attention directed to the acetabulum. The acetabulum was well exposed and then sequentially reamed, gradually advancing to a 54 mm reamer. The Linares and Nephew 54 mm diameter three-hole hemispherical StikTite shell was then inserted, positioning this in about 45 degrees off of vertical and about 20 degrees of anteversion. It seated nicely and appeared to be secure. In addition, 3 screws were placed through the apex holes, which engaged periacetabular bone and resulted in excellent stability of the metal shell. A 54 mm outside diameter liner with a 36 mm inside diameter was selected. This was impacted into the shell and seated nicely and appeared to be secure. The 20-degree elevated rim was placed in about the 10 o'clock posterior position. A trial reduction was performed and again the hip seemed to be nicely aligned and [address] [address] OPERATIVE REPORT Name: INDY GUTIERREZ Room #: 436-P [facility] IN M.R.#: [id number] Admission: 03/05/19 Attend Phys: Alex Black MD Discharge: Date of : 43 Report #: [id number] reduced when using the size 12 femoral stem and a +4 mm neck length with the 36 mm head size. The trial stem was removed and the permanent Linares and Nephew size 13 femoral component was placed. This was positioned about 20 degrees of anteversion. It seated nicely and appeared to be secure. A +4 mm neck length and a 36 mm cobalt chrome head was then impacted on to the Acosta taper neck. This seated nicely and was secure. The hip was reduced. Alignment, range of motion, stability and leg length appeared to be satisfactory. The hip was stable. The short external rotators and capsule were then repaired back to bone using the #1 Tevdek sutures. A single Hemovac was left in the wound exiting through a separate stab incision. The fascia was closed with multiple #1 Vicryl sutures. The subcutaneous tissues were closed with 0 Monocryl and the skin was closed with skin kali. Sterile dressing was applied. The patient was awakened and returned to recovery room in good condition. <ELECTRONICALLY SIGNED> By: Alex Black MD 03/06/19 1244 [id number] Alex Black MD /nt
--- NOTE | 2019-03-06 13:40 | NUR ---
FAXED REFERRAL TO [facility] RECEIVED CONFIRMATION AND LEFT MSG WITH MILENA IN ADM THAT PT POSS DC SAT/RYLIE. DP TO FOLLOW.
--- NOTE | 2019-03-06 17:07 | NUR ---
ASSUMED CARE OF PT AT 0700. PT REFUSED [facility]S AND [facility]. EDUCATED PT ON THE NEED FOR SCD'S AND [facility] AND PT STILL REFUSED. HEMO VAC DRAIN REMOVED. IV INFILTRATED AND NEW IV PLACED IN R AC. PT IS ON ISOLATION FOR C DIFF HX. SURGICAL DRESSING IS CLEAN, DRY AND INTACT. BED IN LOEST POSITION. FALL PRECAUTIONS IN PLACE AND PT EDUCATED ON NOT GETTING UP WITHOUT HELP AND A GAIT BELT. BED ALARM ON AND CALL LIGHT WITHIN REACH. WLL CONTINUE TO MONITOR THE PT.
[2019-03-06 17:40] VITALS: BP 141/64
[2019-03-06 19:47] VITALS: BP 127/60
--- NOTE | 2019-03-07 02:32 | NUR ---
ASSUMED PT CARE ON 03/06/19 AT 1920. PT IS ALERT AND ORIENTED X 4. PT IS AWARE OF LIMITATIONS BUT IMPATIENT WHEN IT COMES TO CALLING FOR HELP. PT IS SLOW AMD WEAK ON HER FEET. PT KNOWS WHEN SHE NEEDS TO GO TO THE BATHROOM BUT BECOMES INCONTINENT. PT WAS UNABLE TO MAKE IT TO THE CAMODE AND WET THE BED. fALL PRECAUTION IS IN PLACE, BED IN LOW POSITION AND THE CALL LIGHT IS IN REACH. DRESSING SITE DRY. PT HAS COMPLAINTS OF PAIN. MEDICATION WAS ADMINISTERED. PT ALSO HAS AN ICE PACK THAT WAS REFILLED Q 3 HOURS. PATIENT STATES THAT HER PAIN LEVEL DECREASED. WILL CONTINUE TO MONITOR.
[2019-03-07 03:08] VITALS: BP 119/50
[2019-03-07 06:07] LABS: HEMATOCRIT 23.6 % (37.0-47.0); HEMOGLOBIN 8.1 gm/dL (12.0-15.0); MCH 32.6 pg (26.0-34.0); MCHC 34.1 g/dL (28.0-37.0); MCV 95.8 fL (80.0-100.0); RBC 2.47 mil/uL (4.20-5.00); RDW 13.1 % (10.5-14.5); WBC 6.7 thou/uL (4.0-11.0)
[2019-03-07 07:50] VITALS: BP 110/71
[2019-03-07 11:50] LABS: CALCIUM 9.3 mg/dL (8.5-10.1); MAGNESIUM 1.6 mg/dL (1.8-2.4); POTASSIUM 4.1 mmol/L (3.5-5.1)
[2019-03-07 16:25] VITALS: BP 118/61
--- NOTE | 2019-03-07 17:56 | NUR ---
Assumed care of pt at 0700. Pt a&ox4. Dressing on right hip c/d/i. Pain controlled. Pt worked with physical therapy. SBA with gaitbelt and walker. Discharge planned for tomorrow 03/08. Call light within reach. Fall precautions in place.
[2019-03-07 19:35] VITALS: BP 146/71
[2019-03-08 03:49] VITALS: BP 131/69
--- NOTE | 2019-03-08 04:17 | NUR ---
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
[2019-03-08 06:19] LABS: HEMATOCRIT 23.3 % (37.0-47.0); MCH 32.7 pg (26.0-34.0); MCHC 34.3 g/dL (28.0-37.0); MCV 95.5 fL (80.0-100.0); RBC 2.44 mil/uL (4.20-5.00); RDW 12.6 % (10.5-14.5); WBC 6.5 thou/uL (4.0-11.0)
[2019-03-08 09:07] VITALS: BP 127/66
--- NOTE | 2019-03-08 14:51 | NUR ---
PT A&OX4, IV INTACT IN L FA. AMBULATING WITH WALKER, GAIT BELT AND PT. PLANS WERE FOR PT TO RETURN TO [facility] TODAY BUT IS CONCERNED ABOUT REDNESS ON RIGHT KNEE. VSS, DENNIES ANY PAIN AT THIS TIME. WILL CONT POC.
[2019-03-08 18:41] VITALS: BP 115/57
[2019-03-08 21:04] VITALS: BP 120/71
--- NOTE | 2019-03-09 01:34 | NUR ---
ASSUMED PT CARE AT 0715 ON 03/08/19. PATIENT HAS NO COMPLAINTS OF ANY PAIN. PATIENT FALL PRECAUTION IS IN PLACE. BED IN LOW POSITION WITH BED ALARM ON AND CALL LIGHT IN REACH. PATIENT REFUSED THE ENOXAPRIN. PATIENT IS LOOKING FORWARD TO DISCHARGE.
[2019-03-09 05:44] VITALS: BP 117/70
[2019-03-09 09:19] VITALS: BP 117/70
--- NOTE | 2019-03-09 13:20 | NUR ---
PT DISCHARGING TODAY TO [facility] STAY FAXED DC ORDERS/SUMMARY TO FACILITY SPOKE WITH MILENA IN ADM SHE RECEIVED DC ORDERS AND ARRANGED TRANSPORT BY [facility] FOR 1330. NOTIFIED PT'S SISTER (MATTEO) AND LEFT VOICEMAIL FOR SON (CRISTAL) OF DC AND TIME OF TRANSPORT. UNIT NOTIFIED AND CHART COPY PER US. RN TO CALL REPORT TO [phone].
--- NOTE | 2019-03-09 16:15 | NUR ---
PT DOING WELL W/ AMBULATING W/ THERAPY. SCANT DRAINAGE ON ELGIN DSNG. NO C/O PAIN. DISCHARGING TO SKILLED THE [facility]. SISTER TRANSPORTING PT PER W/C W/ ALL BELONGINGS.
== END 2019-03-09 16:35 | DRG 470 ==
LOC: 4S 07:00 → TBA 07:00 → PRE 10:22 → 4S 16:37
PROVIDERS: Family Medicine; Internal Medicine; ADMIT Orthopaedic Surgery
PROC: 0SR901Z Replacement of Right Hip Joint with Metal Synthetic Substitute, Open Approach (ICD-10-PCS; principal; 2019-03-05)
DX: M16.11 Unilateral primary osteoarthritis, right hip (principal); I10 Essential (primary) hypertension; E03.9 Hypothyroidism, unspecified; F41.9 Anxiety disorder, unspecified; E78.5 Hyperlipidemia, unspecified; D64.9 Anemia, unspecified; E83.42 Hypomagnesemia
CPT/HCPCS: 10102; 50010; 50101; 50382; 50414; 51412; 53000; 53367; 56521; 56525; 56527; 57095; 62110; 62900; 70005

== ENCOUNTER 2020-02-10 13:07 | Emergency (ER) | payer OTHER ==
[~2020-02-10] VITALS: Ht 162.6 cm; Wt 59.0 kg
[2020-02-10 13:47] LABS: HEMATOCRIT 35.5 % (37.0-47.0); HEMOGLOBIN 12.3 gm/dL (12.0-15.0); MCH 34.8 pg (26.0-34.0); MCHC 34.5 g/dL (28.0-37.0); MCV 100.6 fL (80.0-100.0); RBC 3.53 mil/uL (4.20-5.00); RDW 12.7 % (10.5-14.5); WBC 7.5 thou/uL (4.0-11.0)
[2020-02-10 13:50] LABS: ANION GAP 16 mmol/L (7-16); BUN 12 mg/dL (7-18); CALCIUM 9.3 mg/dL (8.5-10.1); CHLORIDE 98 mmol/L (98-107); CO2 20 mmol/L (21-32); CREATININE 0.8 mg/dL (0.6-1.0); GLUCOSE 132 mg/dL (74-106); POTASSIUM 4.5 mmol/L (3.5-5.1); SODIUM 134 mmol/L (136-145)
[2020-02-10 14:01] LABS: DIRECT BILIRUBIN 0.1 mg/dL (<0.1-0.2); SGOT 42 U/L (15-37); SGPT 32 U/L (30-65); TOTAL BILIRUBIN 0.4 mg/dL (0.2-1.0); TOTAL PROTEIN 7.4 g/dL (6.4-8.2); TROPONIN-I <0.06 ng/mL (<0.06)
--- NOTE | 2020-02-10 14:01 | EKG ---
[facility] [place] [address] ELECTROCARDIOGRAM REPORT Name: INDY GUTIERREZ Room #: PRE M.R.#: [id number] Admission: Attend Phys: Discharge: Date of : 43 Report #: [id number] THIS REPORT FOR: cc: Daniel Sol MD, Neal A. 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 : 1945 Requested By: Jasson Morales Order Number: [id number] MD: Hitesh Lezama Measurements Intervals [place] Rate: 92 P: 36 WV: 157 QRS: -32 QRSD: 94 T: 44 QT: 352 QTc: 436 Interpretive Statements Sinus rhythm Abnormal R-wave progression, early transition Left ventricular hypertrophy Compared to ECG 09/23/2018 12:07:35 Left ventricular hypertrophy now present Electronically Signed On 02-10-2020 14:01:31 CDT by Hitesh Lezama [email or web address] <ELECTRONICALLY SIGNED> By: Hitesh Lezama MD, FACC 02/10/20 1401 1352 1352 Hitesh Lezama MD, [facility] /EPI
[2020-02-10 15:42] LABS: URINE BILIRUBIN NEGATIVE (Negative); URINE BLOOD NEGATIVE (Negative); URINE CLARITY CLEAR; URINE COLOR YELLOW; URINE GLUCOSE-RANDOM* NEGATIVE (Negative); URINE KETONES NEGATIVE (Negative); URINE LEUKOCYTES-REFLEX 2+ (Negative); URINE NITRITE-REFLEX NEGATIVE (Negative); URINE PROTEIN (DIPSTICK) NEGATIVE (Negative); URINE UROBILINOGEN 0.2 E.U./dl (0.2-1.0)
[2020-02-10 15:52] LABS: HYALINE CASTS 0-3 Few /LPF (None Seen); URINE WBC-REFLEX >25 Many /HPF (0-5); WBC CLUMPS Few (None Seen)
[2020-02-10 15:53] LABS: SQUAMOUS 0-3 Few /LPF (0-3); URINE RBC None Seen /HPF (0-2)
[2020-02-10 15:54] LABS: BACTERIA-REFLEX 1-9 Few /HPF (None Seen); CRYSTALS None Seen /LPF (None Seen)
[2020-02-10] MEDS ORDERED: MACROBID 100 M100 MG PO (16:10)
[2020-02-10 16:32] VITALS: BP 175/89
== END 2020-02-10 16:32 | disposition home or self-care (01) ==
LOC: ER 13:07
PROVIDERS: Emergency Medicine
DX: N39.0 Urinary tract infection, site not specified (principal); R41.0 Disorientation, unspecified; H53.2 Diplopia; I10 Essential (primary) hypertension; E78.5 Hyperlipidemia, unspecified; E05.90 Thyrotoxicosis, unspecified without thyrotoxic crisis or storm; F41.9 Anxiety disorder, unspecified; F32.9 Major depressive disorder, single episode, unspecified; Z98.890 Other specified postprocedural states; Z79.899 Other long term (current) drug therapy; Z79.82 Long term (current) use of aspirin

== ENCOUNTER 2020-06-21 19:19 | Emergency (ER) | payer OTHER ==
[~2020-06-21] VITALS: Ht 165.1 cm; Wt 59.0 kg
--- NOTE | ~2020-06-21 | EMS ---
[address] [address] EMS Patient Care Report Name: INDY GUTIERREZ Room #: JV Douglass#: [id number] Admission: 06/21/20 Attend Phys: Discharge: Date of : 44 Report #: [id number] THIS REPORT FOR: //name// Report Transmitted: 06/21/2020 20:29 EMS Care Summary [facility] MED-ACT Incident [id number] @ 06/21/2020 18:45 Incident Location [address] [place] [address] Patient INDY LORENZANA Female, 74 Years 1945 Patient Address [address] [place] [address] Patient History Hypertension (HTN),Hyperlipidemia,Hip Replacement, Patient Allergies No known allergies, Patient Medications Iron, Lisinopril, Sertraline, Levothyroxine, Bupropion, ASA, Xanax, Lovastatin, Chief Complaint rt shoulder Disposition Transported No Lights/[place] Dispatch Reason Sick Person Transported To [facility] Narrative Pt states she was leaning putting a light bulb in a side table lamp when she lost balance and fell onto her rt shoulder. she did this last night and [address] [address] EMS Patient Care Report Name: INDY GUTIERREZ Room #: REG DIANA Douglass#: [id number] Admission: 06/21/20 Attend Phys: Discharge: Date of : 43 Report #: [id number] thought it would be better tonight but decided it would be to much to sleep and requests transport to [facility] ED. We arrived to the [facility] independent living apt. pt is seated in her apt in NAD. she states that when she moves her arm up or out it really hurts. a bruise is noted to the upper region of her rt bicep. no other obvious findings at the site. pain 2/10 with movement. PT requests to call her son prior to leaving ( delay on scene). PT assisted to cot >unit>[facility] ED triage. Report given to RN and Pt seated in a wheel chair. Initial Vitals @19:09BP: 156/63, @19:09P: 94,SpO2: 95, @18:59P: 97,R: 16,BP: 135/74,Pain: 2/10,GCS: 15,Temp: 96.7F,SpO2: 98,Revised Trauma: 12, Assessments @19:33MENTAL:No Abnormalities,SKIN:No Abnormalities,HEENT:Head/Face: No Abnormalities,Eyes: No Abnormalities,Neck/Airway: No Abnormalities,LUNG SOUNDS:General: No Abnormalities,Left Upper: No Abnormalities,Right Upper: No Abnormalities,Left Lower: No Abnormalities,Right Lower: No Abnormalities,ABDOMEN:General: No Abnormalities,Left Upper: No Abnormalities,Right Upper: No Abnormalities,Left Lower: No Abnormalities,Right Lower: No Abnormalities,PELVIS//GI:No Abnormalities,EXTREMITIES:Right Arm: Other,Capillary Refill: Right Upper: < 2 Sec,Left Arm: No Abnormalities,Left Leg: No Abnormalities,Right Leg: No Abnormalities,PULSE:NEURO:No Abnormalities, Impression Injury of Shoulder or Upper Arm Timeline 18:42,Call Received 18:42,Psap Call 18:45,Dispatched 18:46,En Route 18:52,On Scene 18:55,At Patient 18:59,BP: 135/74 M,PULSE: 97,RR: 16 R,SPO2: 98 Ox,ETCO2: ,BG: ,PAIN: 2,GCS: 15, 19:07,Depart Scene 19:09,BP: / M,PULSE: 94,RR: R,SPO2: 95 Ox,ETCO2: ,BG: ,PAIN: ,GCS: , 19:09,BP: 156/63 M,PULSE: ,RR: R,SPO2: Ox,ETCO2: ,BG: ,PAIN: ,GCS: , 19:14,At Destination 19:37,Call Closed [facility] [address] [place] [address] EMS Patient Care Report Name: INDY GUTIERREZ Room #: REG [facility]..#: [id number] Admission: 06/21/20 Attend Phys: Discharge: Date of : 44 Report #: [id number] Disclaimer v1.1 Copyright 2020 [email or web address] This EMS Care Summary contains data elements from the applicable legal record (which may be displayed differently). It is designed to provide pertinent information for the following purposes: continuity of care, clinical quality, and state data reporting. The complete legal record is available to ED staff and administrators of the receiving hospital in [facility]'s Patient Tracker. All data is provided "as is."
[~2020-06-21 19:19] MED LIST changes: +MACROBID 100 M100 MG PO
[2020-06-21 20:29] LABS: ABSOLUTE NEUTROPHILS 6.5 thou/uL (1.4-8.2); BASOPHILS 0.2 % (0.0-2.0); HEMATOCRIT 33.8 % (37.0-47.0); HEMOGLOBIN 11.5 gm/dL (12.0-15.0); MCH 34.8 pg (26.0-34.0); MCHC 34.1 g/dL (28.0-37.0); MONOCYTES 11.3 % (1.0-8.0); PLATELET COUNT 203 thou/uL (150-400); POLYS 84.5 % (36.0-66.0); RBC 3.31 mil/uL (4.20-5.00); RDW 12.4 % (10.5-14.5); WBC 7.7 thou/uL (4.0-11.0)
[2020-06-21 20:41] LABS: CALCIUM 9.6 mg/dL (8.5-10.1); CREATININE 1.3 mg/dL (0.6-1.0); POTASSIUM 4.9 mmol/L (3.5-5.1)
[2020-06-21 20:49] LABS: ALBUMIN 4.1 g/dL (3.4-5.0); TOTAL BILIRUBIN 1.2 mg/dL (0.2-1.0); TOTAL PROTEIN 7.3 g/dL (6.4-8.2)
[2020-06-21] MEDS ORDERED: HYDROCODON-ACE1 EAC7 PO (23:45)
[2020-06-22 00:29] VITALS: BP 145/59
== END 2020-06-22 00:39 | disposition home or self-care (01) ==
LOC: ER 19:19
PROVIDERS: Physician Assistant
DX: M25.511 Pain in right shoulder (principal); M25.521 Pain in right elbow; N17.9 Acute kidney failure, unspecified; I10 Essential (primary) hypertension; E78.5 Hyperlipidemia, unspecified; E03.9 Hypothyroidism, unspecified; Z79.82 Long term (current) use of aspirin; Z79.899 Other long term (current) drug therapy; W18.39XA Other fall on same level, initial encounter; Y93.89 Activity, other specified; Y92.89 Other specified places as the place of occurrence of the external cause; Y99.8 Other external cause status

== ENCOUNTER 2020-11-30 13:50 | Inpatient (IN) | payer OTHER ==
[~2020-11-30] VITALS: Ht 162.6 cm; Wt 69.0 kg
--- NOTE | ~2020-11-30 | EMS ---
[address] [address] EMS Patient Care Report Name: INDY GUTIERREZ Room #: 214-P ADM IN M.R.#: [id number] Admission: 11/30/20 Attend Phys: Daniel Sol MD Discharge: Date of : 43 Report #: [id number] THIS REPORT FOR: //name// Report Transmitted: 12/01/2020 08:56 EMS Care Summary [facility] MED-ACT Incident [id number] @ 11/30/2020 13:04 Incident Location [address] [place] [address] Patient INDY GUTIERREZ Female, 75 Years 1945 Patient Address [address] [place] [address] Patient History Hypertension (HTN),Hypothyroidism, Patient Allergies No known allergies, Patient Medications Lisinopril, Lovastatin, Xanax, Synthroid, Bupropion, Chief Complaint Patient has had two falls in the last 24 hours. Disposition Transported No Lights/[place] Dispatch Reason Falls Transported To [facility] Narrative Arrived to find a 75 yr old female patient sitting up on the floor of her apartment on the independent living side for the [facility] with staff beside her in [facility] [address] [place] [address] EMS Patient Care Report Name: INDY GUTIERREZ Room #: 214-P [facility] IN M.Eulalia.#: [id number] Admission: 11/30/20 Attend Phys: Daniel Sol MD Discharge: Date of : 44 Report #: [id number] no obvious acute distress. According to the staff the patient has a history of drinking. Patient states last night she only had "one glass of wine" prior to going to bed. Staff reports the patient fell yesterday afternoon and they were able to help her up. This morning the patient lost her balance and fell onto her left side. The patient denies hitting her head or having any loss of consciousness. Patient reports she has been having some inner ear issues and has an appointment with an ENT next week. Patient also admits to not always taking the best care of herself, at times not eating and drinking normally. Patient denies any nausea/vomiting/diarrhea, fever, cough, or chills. A: See assessment tab. Physical exam. Vital signs. ECG. BG. Patient was assisted to a standing position and she was very shaky on her feet. We explained to the patient that we recommended transport because she had suffered two falls in less than 24 hours and there could be something wrong that was causing her to fall because she normally does not fall. Additionally we stated the patient was at risk for suffering additional falls, potentially injuring herself if she did not go to the hospital. The patient agreed to ambulance transport and was assisted to the cot. Moved to unit. En route to [facility]. Vital signs and ECG were monitored during transport. IV established. Patient rested on the cot and had no changes to her condition during transport. We contacted [facility] on the med radio. Patient was alert with stable vital signs upon arrival at [facility]. Patient care was transferred to an ED RN in room 23 at [facility]. The cot sheet was utilized to transfer patient care. Patient requested ambulance transport to [facility]. Initial Vitals @13:13P: 76,R: 16,BP: 132/88,SpO2: 99, @13:35P: 74,R: 16,BP: 138/76,Pain: 0/10,GCS: 15,SpO2: 98,Revised Trauma: 12,DC Suspected: false @13:20P: 87,R: 16,BP: 122/78,Pain: 0/10,GCS: 15,SpO2: 97,Revised Trauma: 12,DC Suspected: false @13:25P: 75,R: 16,BP: 145/77,Pain: 0/10,GCS: 15,SpO2: 96,Revised Trauma: 12,DC Suspected: false @13:18P: 72,R: 16,BP: 138/83,Pain: 0/10,GCS: 15,Temp: 97.6F,Glucose: 99,SpO2: 92,Revised Trauma: 12,DC Suspected: false Assessments @13:15MENTAL:Person Oriented,Time Oriented,Place Oriented,Event Oriented,SKIN:Pale,HEENT:Eyes: Left Pupil: 3-mm,Eyes: Right Pupil: 3-mm,LUNG SOUNDS:ABDOMEN:PELVIS//GI:EXTREMITIES:Left Leg: Weakness,Right Leg: Weakness,Left Arm: No Abnormalities,Right Arm: No Abnormalities,PULSE:Radial: 1+ Thready,NEURO: [facility] [address] [place] [address] EMS Patient Care Report Name: INDY GUTIERREZ Room #: 214-P ADM IN M.R.#: [id number] Admission: 11/30/20 Attend Phys: Daniel Sol MD Discharge: Date of : 43 Report #: [id number] Impression Generalized Weakness Procedures @13:31Saline Lock 10cc (18 ga) Site: Antecubital-LeftResponse: UnchangedSucceeded@13:27Surgical Mask on PatientResponse: Unchanged Timeline 13:03,Call Received 13:03,Psap Call 13:04,Dispatched 13:05,En Route 13:08,On Scene 13:12,At Patient 13:13,BP: 132/88 M,PULSE: 76,RR: 16 R,SPO2: 99 Ox,ETCO2: ,BG: ,PAIN: ,GCS: , 13:18,BP: 138/83 M,PULSE: 72,RR: 16 R,SPO2: 92 Ox,ETCO2: ,B,PAIN: 0,GCS: 15, 13:20,BP: 122/78 M,PULSE: 87,RR: 16 R,SPO2: 97 Ox,ETCO2: ,BG: ,PAIN: 0,GCS: 15, 13:25,BP: 145/77 M,PULSE: 75,RR: 16 R,SPO2: 96 Ox,ETCO2: ,BG: ,PAIN: 0,GCS: 15, 13:27,Surgical Mask on Patient,Response: Unchanged 13:31,Saline Lock 10cc 18 ga Site: Antecubital-Left,Response: UnchangedSucceeded, 13:31,Depart Scene 13:35,BP: 138/76 M,PULSE: 74,RR: 16 R,SPO2: 98 Ox,ETCO2: ,BG: ,PAIN: 0,GCS: 15, 13:39,At Destination 13:57,Call Closed Disclaimer v1.1 Copyright 2020 [employer] This EMS Care Summary contains data elements from the applicable legal record (which may be displayed differently). It is designed to provide pertinent information for the following purposes: continuity of care, clinical quality, and state data reporting. The complete legal record is available to ED staff and administrators of the receiving hospital in [facility]'s Patient Tracker. All data is provided "as is."
--- NOTE | ~2020-11-30 | EMS ---
[facility] [address] [place] [address] EMS Patient Care Report Name: INDY GUTIERREZ Room #: 214-P ADM IN M.R.#: [id number] Admission: 11/30/20 Attend Phys: Daniel Sol MD Discharge: Date of : 43 Report #: [id number] THIS REPORT FOR: //name// Report Transmitted: 11/30/2020 19:57 EMS Care Summary [facility] MED-ACT Incident [id number] @ 11/30/2020 13:04 Incident Location [address] [place] [address] Patient INDY GUTIERREZ Female, 75 Years 1945 Patient Address [address] [place] [address] Patient History Hypertension (HTN),Hypothyroidism, Patient Allergies No known allergies, Patient Medications Lisinopril, Lovastatin, Xanax, Synthroid, Bupropion, Chief Complaint Patient has had two falls in the last 24 hours. Disposition Transported No Lights/[place] Dispatch Reason Falls Transported To [facility] Narrative Arrived to find a 75 yr old female patient sitting up on the floor of her apartment on the independent living side for the [facility] with staff beside her in [facility] [address] [place] [address] EMS Patient Care Report Name: INDY GUTIERREZ Room #: 214-P ADM IN M.Eulalia.#: [id number] Admission: 11/30/20 Attend Phys: Daniel Sol MD Discharge: Date of : 44 Report #: [id number] no obvious acute distress. According to the staff the patient has a history of drinking. Patient states last night she only had "one glass of wine" prior to going to bed. Staff reports the patient fell yesterday afternoon and they were able to help her up. This morning the patient lost her balance and fell onto her left side. The patient denies hitting her head or having any loss of consciousness. Patient reports she has been having some inner ear issues and has an appointment with an ENT next week. Patient also admits to not always taking the best care of herself, at times not eating and drinking normally. Patient denies any nausea/vomiting/diarrhea, fever, cough, or chills. A: See assessment tab. Physical exam. Vital signs. ECG. BG. Patient was assisted to a standing position and she was very shaky on her feet. We explained to the patient that we recommended transport because she had suffered two falls in less than 24 hours and there could be something wrong that was causing her to fall because she normally does not fall. Additionally we stated the patient was at risk for suffering additional falls, potentially injuring herself if she did not go to the hospital. The patient agreed to ambulance transport and was assisted to the cot. Moved to unit. En route to [facility]. Vital signs and ECG were monitored during transport. IV established. Patient rested on the cot and had no changes to her condition during transport. We contacted [facility] on the [employer] radio. Patient was alert with stable vital signs upon arrival at [facility]. Patient care was transferred to an ED RN in room 23 at [facility]. The cot sheet was utilized to transfer patient care. Patient requested ambulance transport to [facility]. Initial Vitals @13:13P: 76,R: 16,BP: 132/88,SpO2: 99, @13:35P: 74,R: 16,BP: 138/76,Pain: 0/10,GCS: 15,SpO2: 98,Revised Trauma: 12,ID Suspected: false @13:20P: 87,R: 16,BP: 122/78,Pain: 0/10,GCS: 15,SpO2: 97,Revised Trauma: 12,ID Suspected: false @13:25P: 75,R: 16,BP: 145/77,Pain: 0/10,GCS: 15,SpO2: 96,Revised Trauma: 12,ID Suspected: false @13:18P: 72,R: 16,BP: 138/83,Pain: 0/10,GCS: 15,Temp: 97.6F,Glucose: 99,SpO2: 92,Revised Trauma: 12,ID Suspected: false Assessments @13:15MENTAL:Person Oriented,Time Oriented,Place Oriented,Event Oriented,SKIN:Pale,HEENT:Eyes: Left Pupil: 3-mm,Eyes: Right Pupil: 3-mm,LUNG SOUNDS:ABDOMEN:PELVIS//GI:EXTREMITIES:Left Leg: Weakness,Right Leg: Weakness,Left Arm: No Abnormalities,Right Arm: No Abnormalities,PULSE:Radial: 1+ Thready,NEURO: [address] [address] EMS Patient Care Report Name: INDY GUTIERREZ Room #: 214-P ADM IN M.R.#: [id number] Admission: 11/30/20 Attend Phys: Daniel Sol MD Discharge: Date of : 43 Report #: [id number] Impression Generalized Weakness Procedures @13:31Saline Lock 10cc (18 ga) Site: Antecubital-LeftResponse: UnchangedSucceeded@13:27Surgical Mask on PatientResponse: Unchanged Timeline 13:03,Call Received 13:03,Psap Call 13:04,Dispatched 13:05,En Route 13:08,On Scene 13:12,At Patient 13:13,BP: 132/88 M,PULSE: 76,RR: 16 R,SPO2: 99 Ox,ETCO2: ,BG: ,PAIN: ,GCS: , 13:18,BP: 138/83 M,PULSE: 72,RR: 16 R,SPO2: 92 Ox,ETCO2: ,B,PAIN: 0,GCS: 15, 13:20,BP: 122/78 M,PULSE: 87,RR: 16 R,SPO2: 97 Ox,ETCO2: ,BG: ,PAIN: 0,GCS: 15, 13:25,BP: 145/77 M,PULSE: 75,RR: 16 R,SPO2: 96 Ox,ETCO2: ,BG: ,PAIN: 0,GCS: 15, 13:27,Surgical Mask on Patient,Response: Unchanged 13:31,Saline Lock 10cc 18 ga Site: Antecubital-Left,Response: UnchangedSucceeded, 13:31,Depart Scene 13:35,BP: 138/76 M,PULSE: 74,RR: 16 R,SPO2: 98 Ox,ETCO2: ,BG: ,PAIN: 0,GCS: 15, 13:39,At Destination 13:57,Call Closed Disclaimer v1.1 Copyright 2020 [employer] This EMS Care Summary contains data elements from the applicable legal record (which may be displayed differently). It is designed to provide pertinent information for the following purposes: continuity of care, clinical quality, and state data reporting. The complete legal record is available to ED staff and administrators of the receiving hospital in [facility]'s Patient Tracker. All data is provided "as is."
[2020-11-30 13:50] VITALS: BP 177/82
[~2020-11-30 13:50] MED LIST changes: +HYDROCODON-ACE1 EAC7 PO
[2020-11-30 14:10] LABS: BASOPHILS 0.4 % (0.0-2.0); EOSINOPHILS 0.3 % (0.0-3.0); HEMATOCRIT 32.1 % (37.0-47.0); HEMOGLOBIN 11.2 gm/dL (12.0-15.0); LYMPHOCYTES 7.4 % (24.0-44.0); MCH 37.5 pg (26.0-34.0); MCHC 34.8 g/dL (28.0-37.0); MCV 107.7 fL (80.0-100.0); MONOCYTES 7.5 % (1.0-8.0); PLATELET COUNT 204 thou/uL (150-400); POLYS 84.4 % (36.0-66.0); RBC 2.98 mil/uL (4.20-5.00); RDW 12.8 % (10.5-14.5); URINE BILIRUBIN NEGATIVE (Negative); URINE BLOOD NEGATIVE (Negative); URINE CLARITY CLEAR; URINE COLOR YELLOW; URINE GLUCOSE-RANDOM* NEGATIVE (Negative); URINE KETONES TRACE (Negative); URINE LEUKOCYTES-REFLEX NEGATIVE (Negative); URINE NITRITE-REFLEX NEGATIVE (Negative); URINE PROTEIN (DIPSTICK) NEGATIVE (Negative); URINE SPECIFIC GRAVITY 1.015 (1.005-1.035); URINE UROBILINOGEN 0.2 E.U./dl (0.2-1.0)
[2020-11-30 14:27] LABS: CALCIUM 8.9 mg/dL (8.5-10.1); CREATININE 1.1 mg/dL (0.6-1.0); POTASSIUM 3.9 mmol/L (3.5-5.1)
[2020-11-30 14:35] LABS: ALBUMIN 3.3 g/dL (3.4-5.0); TOTAL BILIRUBIN 0.8 mg/dL (0.2-1.0); TOTAL PROTEIN 6.1 g/dL (6.4-8.2); TROPONIN-I 0.12 ng/mL (<0.06)
[2020-11-30 17:58] LABS: MACROCYTES 2+; POLYCHROMASIA 1+
[2020-11-30 20:27] VITALS: BP 172/90
[2020-11-30 20:58] VITALS: BP 149/78
--- NOTE | 2020-11-30 23:16 | NUR ---
PT ADMITTED FROM ER AT 2034, DENIES PAIN OR SOB, SR ON TELE, ADMISSION HX, ASSESSMENT AND EDUCATION COMPLETED, MEDS GIVEN PER JUL, DENIES NEEDS, WILL CONTINUE TO MONITOR AND FOLLOW POC
[2020-12-01 00:34] VITALS: BP 151/93
[2020-12-01 03:53] VITALS: BP 141/86
--- NOTE | 2020-12-01 07:11 | EKG ---
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 : 1945 Requested By: Andrew Burnett Order Number: [id number] MD: Hitesh Lezama Measurements Intervals [place] Rate: 74 P: 22 TN: 64 QRS: -29 QRSD: 109 T: 53 QT: 469 QTc: 521 Interpretive Statements Sinus rhythm Short TN interval Consider right atrial enlargement Low voltage, precordial leads Abnormal R-wave progression, late transition Probable left ventricular hypertrophy Prolonged QT interval Artifact in lead(s) I,II,III,aVF,V1,V2,V3,V4,V5,V6 Compared to ECG 02/10/2020 13:52:24 Short TN interval now present Low QRS voltage now present Prolonged QT interval now present Electronically Signed On 12-01-2020 7:11:43 CDT by Hitesh Lezama [email or web address] <ELECTRONICALLY SIGNED> By: Hitesh Lezama MD, [facility] 12/01/20 0711 1520 1520 Hitesh Lezama MD, [facility] /EPI
[2020-12-01 07:45] VITALS: BP 127/77
--- NOTE | 2020-12-01 08:14 | EKG ---
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 : 1945 Requested By: Marita Kohli Order Number: [id number] : Hitesh Lezama Measurements Intervals [place] Rate: 69 P: 41 NE: 172 QRS: -30 QRSD: 99 T: 15 QT: 426 QTc: 457 Interpretive Statements Sinus rhythm Abnormal R-wave progression, early transition Left ventricular hypertrophy Compared to ECG 11/30/2020 15:20:35 Short NE interval no longer present Prolonged QT interval no longer present Electronically Signed On 12-01-2020 8:14:14 CDT by Hitesh Lezama [email or web address] <ELECTRONICALLY SIGNED> By: Hitesh Lezama MD, [facility] 12/01/20 0814 0755 0755 Hitesh Lezama MD, [facility] /EPI
--- NOTE | 2020-12-01 11:27 | 2DMMODE ---
[facility] [place] [address] 2 D/M-MODE ECHOCARDIOGRAM Name: INDY GUTIERREZ Room #: 214-P ADM IN M.R.#: [id number] Admission: 11/30/20 Attend Phys: Daniel Sol MD Discharge: Date of : 43 Report #: [id number] THIS REPORT FOR: cc: Daniel Sol MD, Neal A. MD Lammoglia, Francisco J. MD ~ APPROVED REPORT Study performed: 12/01/2020 10:00:41 EXAM: Comprehensive 2D, Doppler, and color-flow Echocardiogram Patient Location: Bedside Room #: 214 Status: routine BSA: 1.74 HR: 73 bpm BP: 127/77 mmHg Rhythm: NSR Other Information Study Quality: Good Indications Elevated Troponin Hypertension/HDD 2D Dimensions IVSd: 9.88 (7-11mm) LVOT Diam: 18.68 (18-24mm) LVDd: 46.46 mm PWd: 9.95 (7-11mm) Ascending Ao: 33.58 (22-36mm) LVDs: 28.63 (25-40mm) Left Atrium: 31.39 (27-40mm) Aortic Root: 30.15 mm IVC: 14.00 mm Volumes Left Atrial Volume (Systole) Single Plane 4CH: 56.09 mL Single Plane 2CH: 30.33 mL LA ESV Index: 27.00 mL/m2 Aortic Valve AoV Peak Chaitanya.: 1.77 m/s AO Peak Gr.: 12.56 mmHg LVOT Max P.38 mmHg LVOT Max V: 1.16 m/s JO ANN Vmax: 1.79 cm2 [facility] [address] [address] 2 D/M-MODE ECHOCARDIOGRAM Name: INDY GUTIERREZ Room #: 214-P [facility] IN [facility].#: [id number] Admission: 11/30/20 Attend Phys: Daniel Sol, Discharge: Date of : 43 Report #: [id number] Mitral Valve E/A Ratio: 0.9 MV Decel. Time: 192.35 ms MV E Max Chaitanya.: 1.32 m/s MV A Chaitanya.: 1.44 m/s MV PHT: 55.78 ms IVRT: 92.27 ms Pulmonary Valve PV Peak Chaitanya.: 1.20 m/s PV Peak Gr.: 5.72 mmHg Pulmonary Vein P Vein S: 1.03 m/s P Vein A: 0.27 m/s P Vein D: 0.39 m/s P Vein A Dur.: 106.1 msec P Vein S/D Ratio: 2.64 Tricuspid Valve TR Peak Chaitanya.: 3.08 m/s TR Peak Gr.: 38.02 mmHg PA Pressure: 43.00 mmHg Left Ventricle The left ventricle is normal size. There is normal LV segmental wall motion. There is normal left ventricular wall thickness. The left ventricular systolic function is normal. The left ventricular ejection fraction is within the normal range. LVEF is 60-65%. Grade II - pseudonormal filling dynamics. Right Ventricle The right ventricle is normal size. The right ventricular systolic function is normal. Atria The left atrium size is normal. The right atrium size is normal. Aortic Valve The aortic valve is normal in structure. The Aortic valve is sclerotic. Mild aortic regurgitation. There is no aortic valvular stenosis. Mitral Valve The mitral valve is normal in structure. Mild mitral regurgitation. No evidence of mitral valve stenosis. [facility] [address] [place] [address] 2 D/M-MODE ECHOCARDIOGRAM Name: INDY GUTIERREZ Room #: 214-P [facility] IN ..#: [id number] Admission: 11/30/20 Attend Phys: Daniel Sol, Discharge: Date of : 43 Report #: [id number] Tricuspid Valve The tricuspid valve is normal in structure. There is mild tricuspid regurgitation. Estimated PAP 43 mmHg. There is moderate pulmonary hypertension. Pulmonic Valve The pulmonary valve is normal in structure. Trace pulmonic regurgitation. Great Vessels The aortic root is normal in size. IVC is normal in size and collapses >50% with inspiration. Pericardium There is no pericardial effusion. <Conclusion> The left ventricle is normal size. There is normal LV segmental wall motion. LVEF is 60-65%. The aortic valve is normal in structure. The Aortic valve is sclerotic. Mild aortic regurgitation. The mitral valve is normal in structure. Mild mitral regurgitation. The tricuspid valve is normal in structure. There is mild tricuspid regurgitation. Estimated PAP 43 mmHg. There is moderate pulmonary hypertension. The pulmonary valve is normal in structure. Trace pulmonic regurgitation. The aortic root is normal in size. There is no pericardial effusion. <ELECTRONICALLY SIGNED> By: Raleigh Hall MD 12/01/20 1127 26 26 Raleigh Hall MD /INF
[2020-12-01 14:00] VITALS: BP 156/89
--- NOTE | 2020-12-01 15:53 | NUR ---
ASSESSMENT CHARTED - PT MORE ORIENTED THIS AM THAN SHE IS THIS PM - APPEARS TO HAVE GOTTEN A LITTLE MORE CONFUSED THE DAY HAS GONE ON. SPOKE WITH SON IN [facility] THAT IS A PHYSICIAN AND HE STATED THAT SHE DOES GET SOMEWHAT CONFUSED [facility] [place] [facility]. ECHO AND STRESS TEST COMPLETED TODAY. PT GWENDOLYN DIET AND FLUIDS, MEDS PER MAR UP TO THE BATHROOM WITH THE USE OF A WALKER. NO CO'S AT THE PRESENT TIME.
[2020-12-01 16:20] VITALS: BP 152/99
[2020-12-01 20:06] VITALS: BP 153/93
[2020-12-02 05:24] VITALS: BP 152/96
--- NOTE | 2020-12-02 05:33 | NUR ---
pt resting quietly thru the noc, assessments as charted, no c/o pain will con't to monitor per ppoc.
[2020-12-02 07:40] VITALS: BP 174/96
[2020-12-02 11:58] VITALS: BP 174/96
--- NOTE | 2020-12-02 12:05 | NUR ---
Case opened to follow for dc planning. Pt lives in [facility] apt[facility] at [facility]. She uses a rwalker for gait and manages her own adl's and medications. Finished Carpet Inspector visited with the pt at bedside and she was A&Ox3. She was forgetful and avoided any detailed questions about her care needs. Family is also noting that her mental status is a concern. Pt with two falls in two days precipitating her admission. Pt being seen by cardiology and therapy evals are in progress. Pt having ortho static bp with OT eval. Pt denies any concerns in caring for herself. Finished Carpet Inspector spoke with Son/dpoa Dr. Dejon Serrano. He indicates family has been concerned about her needing more supervision and support to maintain [place] vs going to [place] [facility]. The director recently evaluated her and she was approved to continue [place]. He is open to referral and private duty referral through [facility] who offers services in that longterm community. [facility] can accept at dc;however therapy now recommending 5N rehab eval as pt needing min a with transfers and very orthostatic. 5N eval requested. Referral faxed to [facility]. DC timeframe 1-2 days pending cardiology recommendations. Will follow.
[2020-12-02] MEDS ORDERED: TOPROL XL25 MG PO (12:40)
[2020-12-02 15:25] VITALS: BP 144/87
--- NOTE | 2020-12-02 19:46 | NUR ---
PT BEGAN SHIFT AXOX4, SOMEWHAT FORGETFUL. VS [id number], AFEBRILE, SR ON MONITOR. PT PROGRESSIVELY BECAME MORE AGITATED AND IMPULSIVE. PT/OT CONSULTED. PT WAS TO TRANSFER TO 5N, BUT BECAME AGITATED, AMS, AND INCREASED IMPULSIVE BEHAVIOR. DR DALTON CONSULTED. PT STARTED ON CIWA PROTOCOL. HIGH FALL PRECAUTIONS IN PLACE. POC IS TO CONTINUE TO ASSESS PT MENTAL STATUS AND CIWA. RX LORAZEPAM ON EMAR. FREQUENT ROUNDING PT CONTINUES TO BE IMPULSIVE.
[2020-12-02 20:24] VITALS: BP 180/94
[2020-12-03 04:55] VITALS: BP 172/90
--- NOTE | 2020-12-03 05:31 | NUR ---
frequent rounding needed as pt remains impulsive, vss bp remains elevated, ciwa evals started and treated, sleeping on and off since midnoc, incon't of urine x2, no c/o pain, will continue to monitor per ppoc.
[2020-12-03 07:25] VITALS: BP 159/92
--- NOTE | 2020-12-03 11:09 | NUR ---
5N REHAB ADMISSIONS FOLLOWING. UNABLE TO ACCEPT PATIENT TO REHAB THIS DATE SHE REMAINS ON CIWA PROTOCOL. WILL CONTINUE TO FOLLOW AND ASSESS FOR APPROPRIATENESS FOR ADMISSION.
--- NOTE | 2020-12-03 13:30 | NUR ---
ASSUMED PT CARE AT SHIFT CHANGE, PT IS CONFUSED, ALERT TO SELF, PLEASANT. UNSTEADY ON FEET, STAND/PIVOT WITH GAIT BELT NECESSARY. PT EASILY REDIRECTED FROM SLIGHT AGITATION WITH CONVERSATION. PT SISTER MATTEO IN ROOM DURING LUNCH, STATES SHE WISHES NOT TO BE CALLED WITH UPDATES SHE HAS NO DPOA. THIS RN SWITCHED ORDER OF CONTACT IN COMPUTER. PT SISTER STATES PT HAS DISPLAYED UNSAFE BEHAVIORS IN INDEPENDENT APARTMENT (TRIPPING HAZARDS, NOT USING CANE, NON COMPLIANT WITH MEDICATION). PLEASE DIRECT ALL COMMUNICATION TO SON CRISTAL, . HE LIVES IN [place], [place], BUT SHOULD BE IN TODAY OR TOMORROW (PER SISTER MATTEO).
--- NOTE | 2020-12-03 15:35 | NUR ---
5N FOLLOWING FOR POSSIBLE REHAB ADMISSION. PATIENT UNABLE TO TRANSFER AT THIS TIME DUE TO BEING ON CIWA PROTOCOL. WILL CONTINUE TO FOLLOW.
[2020-12-03 15:50] VITALS: BP 161/92
[2020-12-03 20:03] VITALS: BP 189/102
[2020-12-03 22:00] VITALS: BP 177/89
[2020-12-04] VITALS: BP 178/98
--- NOTE | 2020-12-04 02:53 | NUR ---
PT IMPULSIVE AND AGITATED AT START OF SHIFT, CONFUSED , INCON'T OF URINE, VSS, NO C/O PAIN, REORIENTED SEVERAL TIMES AND REPOSITIONED RESTING QUIETLY IN ROOM, WILL CON'T TO MONITOR PER PPOC.
[2020-12-04 04:44] VITALS: BP 184/111
[2020-12-04 07:40] VITALS: BP 160/87
[2020-12-04 15:30] VITALS: BP 159/85
[2020-12-04 19:46] VITALS: BP 163/106
[2020-12-05 00:07] VITALS: BP 178/95
[2020-12-05 04:44] VITALS: BP 169/94
--- NOTE | 2020-12-05 07:20 | NUR ---
RECEIVED REPORT FROM KRIAN DAY SHIFT RN.PATIENT HAS SIGNS OF WITHDRAWAL AND ATIVAN GIVEN.DENIES PAIN.PLEASANTLY CONFUSED.MONITOR SHOWS SR.POC CONTINUED.
[2020-12-05 07:40] VITALS: BP 145/87
--- NOTE | 2020-12-05 13:30 | NUR ---
PT ALERT TO SELF ONLY. VSS. SR ON TELE. PT DENIES PAIN/SOA. CIWA WAS 7 THIS MORNING PRN MEDICATIONS GIVEM. PT TOLERATES MEDS AND MEALS. PT WORKES WELL WITH PT/OT TODAY. PT SOLWLY PROGRESSING [facility] POC GOALS.
[2020-12-05 15:15] VITALS: BP 158/88
[2020-12-05 20:00] VITALS: BP 182/94
[2020-12-06 00:15] VITALS: BP 165/82
[2020-12-06 04:07] VITALS: BP 162/88
--- NOTE | 2020-12-06 06:54 | NUR ---
BP ELEVATED.ONETIME METOPROLOL GIVEN ORDERED.HEART RATE IN THE 40'S.PT HAS BEEN SLEEPING.AGITATED FROM TIME TO TIME.DENIES PAIN.POC CONTINUED.
[2020-12-06 08:15] VITALS: BP 146/88
--- NOTE | 2020-12-06 16:50 | NUR ---
patient stable to discharge to 5N today. Sister at bedside she expressed concern of dc to 5N. Sp with sister in [facility]. She reports she falls in apt and very confused. Reviewed 5N acute rehab care. Discussed team meetings and phys oversite. Denia GRIJALVA practioner also met with sister and discussed care. Sister agreeable for transfer. Sp with son Dejon who is DPOA. Updated of transfer to 5N. He gave permission for casemgt to sp with [facility]. Sp with [facility]. Updated patient to dc to 5N today. Discussed patient may need higher level of care or private duty. Casemgt for acute rehab to update/
== END 2020-12-06 17:20 | DRG 74 ==
LOC: ER 13:50 → EROBS 17:36 → 2N 17:36
PROVIDERS: Emergency Medicine; ADMIT Family Medicine; ATTEND Family Medicine
PROC: 3E033HZ Introduction of Radioactive Substance into Peripheral Vein, Percutaneous Approach (ICD-10-PCS; principal; 2020-12-01)
PROC: 4A02XM4 Measurement of Cardiac Total Activity, External Approach (ICD-10-PCS; principal; 2020-12-01)
DX: G90.8 Other disorders of autonomic nervous system (principal); F10.139 Alcohol abuse with withdrawal, unspecified; N17.9 Acute kidney failure, unspecified; I95.1 Orthostatic hypotension; R77.8 Other specified abnormalities of plasma proteins; E03.9 Hypothyroidism, unspecified; Y90.9 Presence of alcohol in blood, level not specified; I10 Essential (primary) hypertension; E78.5 Hyperlipidemia, unspecified; F41.9 Anxiety disorder, unspecified; F32.9 Major depressive disorder, single episode, unspecified; R27.0 Ataxia, unspecified; I08.3 Combined rheumatic disorders of mitral, aortic and tricuspid valves; D50.9 Iron deficiency anemia, unspecified; F03.90 Unspecified dementia, unspecified severity, without behavioral disturbance, psychotic disturbance, mood disturbance, and anxiety; Z20.822 Contact with and (suspected) exposure to COVID-19; Z98.42 Cataract extraction status, left eye; Z98.41 Cataract extraction status, right eye; Z79.899 Other long term (current) drug therapy; Z79.82 Long term (current) use of aspirin
CPT/HCPCS: 10081

== ENCOUNTER 2020-12-02 14:11 | Inpatient (IN) | payer OTHER ==
[~2020-12-02] VITALS: Ht 162.6 cm; Wt 68.0 kg
[~2020-12-02 14:11] MED LIST changes: +TOPROL XL25 MG PO
--- NOTE | 2020-12-06 17:25 | NUR ---
PT ARRIVED FROM SECOND FLOOR VIA W/C. PT ASSISTED TO BED. PT GETTING SET UP FOR DINNER. PT ALERT AND ORIENTED TO PERSON. PT STATED HER BDAY IS [birth year] WHICH IS REALLY [birth year]. PT WANTING A CHARDONNAY TO DRINK. STATED TO PT NO ALCOHOL HERE. PT STATED SHE USED TO WORK AT AN [employer] OFFICE. PT WANTING TO GET SONS PHONE NUMBER. PT STATED SHE SAID Jun THEN LAUGHED. PT DIDN'T KNOW SHE WAS IN HOSPITAL. PT STATED SHE HAS HAD A DAY. PT HER IN REHAB FOR ETOH ENCEPHALOPATHY HTN AND ORTHSTATIC HYPOTENSION. PT FROM [facility] [place]. PT ADMITS TO FALLING AT HOME. PT IS IMPULSIVE AND WILL FORGET TO CALL FOR HELP. PT BED ALARM ON AND ROOM IS ACROSS FROM THE DESK.
[2020-12-06 17:45] VITALS: BP 138/82
--- NOTE | 2020-12-06 19:23 | NUR ---
PT CALLING LORENZA HER SON AT THIS TIME AND TELLING HIM TO COME GET HER. PT WANTING SOMEONE TO PICK HER UP DUE TO NOT ABLE TO KEEP HER EYES OPEN.
--- NOTE | 2020-12-06 19:40 | NUR ---
PT WANTING TO GET UP AND LEAVE, PT GETTING UP AT END OF BED AND WAS ASSISTED BACK TO BED VIA NIGHT NURSE AND THIS BLINDSTITCH MACHINE OPERATOR. PT STATED SHE HAS TO WORK IN THE AM. PT WANTING TO GO HOME, PT STATE SHE WILL WALK OUT AND SLEEP IN A DITCH TONIGHT. TOLD THIS BLINDSTITCH MACHINE OPERATOR WE WOULDN'T LET HER SLEEP IN A DITCH AND SHE IS HERE FOR THERAPY AND TO EVAL HOW SHE CAN WALK SAFELY.
--- NOTE | 2020-12-06 19:55 | NUR ---
PT WANTING THIS BEATER LEAD TO CALL [facility] AND TELL THEM SHE HAS TO TAKE THE DAY OFF DUE TO BEING SICK. 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
--- NOTE | 2020-12-07 01:43 | NUR ---
UP TO BSC WITH GAIT BELT AND WALKER, APPRECIATES EXPLANATION OF MEDS, STATES SHE USUALLY TAKES A STATIN DIFFERENT THAN LIPITOR. DENIES PAIN. STATES SHE HAS BEEN STAYING [facility] LAT[facility] AND WOULD LIKE TO GO BACK THERE WHEN SHE GETS HER STRENGTH BACK. IN ROOM 514 NEAR DESK WITH BED ALARM ON IN CASE SHE GETS UP IMPULSIVELY AGAIN, STATES SHE HAS BEEN GLUTEN FREE FOR FOUR YEARS
[2020-12-07 07:15] VITALS: BP 135/85
[2020-12-07 08:31] LABS: HEMATOCRIT 38.7 % (37.0-47.0); HEMOGLOBIN 13.3 gm/dL (12.0-15.0); MCH 36.7 pg (26.0-34.0); MCHC 34.5 g/dL (28.0-37.0); MCV 106.4 fL (80.0-100.0); RBC 3.64 mil/uL (4.20-5.00); RDW 12.6 % (10.5-14.5)
[2020-12-07 08:43] LABS: CALCIUM 9.5 mg/dL (8.5-10.1); CREATININE 1.3 mg/dL (0.6-1.0); POTASSIUM 3.4 mmol/L (3.5-5.1)
--- NOTE | 2020-12-07 09:01 | NUR ---
Chart review, case opened for acute rehab. Noted she lives at the [facility], alone. Had few falls prior to admit to hospital. Has roller walker, was not needing any assist with Adl's prior to hospital. Manages own medication. Agreeable to [facility] if needed at dc. Son Dejon is her dpoa. Will cont. following as needed for dc needs.
--- NOTE | 2020-12-07 10:44 | NUR ---
ASSUMED CARE AT 0700. PATIENT IS ALERT AND ORIENTED TO PERSON. PATIENT VICKERS'S, ENRICHMENT TEACHER ARE EQUAL. LUNGS ARE CLEAR AND DEMINISHED. ENCOURAGED I.S. UP IN THE CHAIR. ABD IS SOFT WITH BSX4. UP TO THE BSC TO VOID YAJAIRA COLORED URINE. FALL AND SAFETY PROTOCOLS IN PLACE. DENIES PAIN AT THIS TIME. CONTINUES TO PROGRESS SLOWLY TOWARDS D/C GOALS. WILL CONTINUE TO MONITER.
[2020-12-07 19:54] VITALS: BP 133/78
--- NOTE | 2020-12-08 04:40 | NUR ---
ASSUMED CARE AT 1900 OF 12/07. PATIENT IS A&O TO SELF, EASILY REORIENTED TO TIME, PLACE AND SITUATION. MODERATE ASSIT OF 1 FOR TRANSFERS USING GAIT BELT, AND MININMAL ASSIST USING WALKER AND GAIT BELT FOR AMBULATION TO BATHROOM. SHUFFLES WHEN AMBULATING. REQUIRES CUES DURING AMBULATION, AND WHEN TOILETING. RECEIVED XANAX AT FOR INSOMNIA. ABLE TO REPOSITION SELF IN BED. BED ALARM ON, FREQUENT OBSERVATION FROM NURSE'S STATION, CALL LIGHT WITHIN REACH. WILL CONTINUE TO MONITOR.
[2020-12-08 08:02] VITALS: BP 133/88
--- NOTE | 2020-12-08 13:35 | NUR ---
ASSUMED CARE AT 0700. PATIENT IS ALERT AND ORIENTED X2-3, BUT FORGETFUL. PATIENT VICKERS'S, BIOINFORMATICIAN ARE EQUAL. LUNGS ARE CLEAR AND DEMINISHED. ABD IS SOFT WITH BSX4. UP TO THE BSC TO VOID YAJAIRA COLORED URINE. PATIENT IS UP WITH ASSIST OF 1-2 STAFF WITH GAIT BELT AND WALKER. UP IN THE CHAIR FOR MEALS. FALL AND SAFETY PROTOCOLS IN PLACE. DENIES PAIN AT THIS TIME. CONTINUES TO PROGRESS TOWARDS SLOWLY TOWARDS D/C GOALS. WILL CONTINUE TO MONITER.
--- NOTE | 2020-12-08 15:36 | NUR ---
[facility] follow for hh needs at co. Lives at [facility]
[2020-12-08 19:44] VITALS: BP 144/82
--- NOTE | 2020-12-09 05:05 | NUR ---
ASSUMED CARE AT 1900 OF 12/08. PATIENT IS A&O TO SELF ONLY. REQUIRES REORIENTATION TO SITUATION, PLACE AND TIME, EASILY REDIRECTED. PATIENT WAS IMPULSIVE DURING SHIFT AND HAS TRIED GETTING OUT OF BE TWICE WITHOUT USING CALL LIGHT. 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 PATIENT WAS CONFUSED AND SAID SHE HAD TO ANOTHER ROOM OF THE HOTEL, BECAUSE THIS WAS NOT HER ROOM. REORIENTED TO SITUATION AND PLACE. ASSIT OF 1 USING GB AND WALKER FOR TRANSFERS AND AMBULATION TO BATHROOM TO VOID. PRN XANAX ADMINISTERED AT HS. ABLE TO REPOSITION SELF IN BED. WILL CONTINUE TO MONITOR.
[2020-12-09 07:49] VITALS: BP 129/69
--- NOTE | 2020-12-09 08:37 | NUR ---
PT SITTING UP IN CHAIR THIS AM. PT ORIENTED TO PERSON AND PLACE. PT THOUGHT THAT IT WAS JULY. PT STATED SHE HAS SOME PAIN TO RT GREAT TOE OF 8 ON 1-10 SCALE. PT STATED IT IS THROBBING. PT KNOW SHE LIVES [facility]. PT UP WITH ASSIST WITH WALKER. PT STATED SHE IS READY TO GO HOME.
[2020-12-09 14:14] LABS: CALCIUM 9.7 mg/dL (8.5-10.1); CREATININE 1.5 mg/dL (0.6-1.0); POTASSIUM 4.1 mmol/L (3.5-5.1); URIC ACID* 5.2 mg/dL (2.6-6.0)
--- NOTE | 2020-12-09 15:18 | NUR ---
PT STANDING UP AND SAYING SHE NEEDS TO GO DOWNSTAIRS. PT STATED SHE NEEDS TO GO TO HER ROOM SHE IS WALKING OUT WITH WALKER. PT ORIENTED TO ROOM AND REHAB FLOOR. PT WALKING AROUND WITH STAFF WITH WALKER.
--- NOTE | 2020-12-09 16:37 | NUR ---
PT WALKING AROUND THE UNIT AND WANTING TO GO DOWNSTAIRS TO SEE HER BROTHER. TOLD PT SHE IS IN REHAB AND HE IS NOT HERE. PT SAID SHE IS GOING TO QUIT A JOB TOMMORROW SHE DOESN'T HAVE. PT STATED TO THIS LEAD PRESSMAN ROTO GRAVURE PRINTING SHE WAS GOING TO HIT ME WITH THE WALKER AND SHE IS NOT AFFILIATED WITH THIS PLACE.
[2020-12-09 19:26] VITALS: BP 120/71
--- NOTE | 2020-12-10 02:02 | NUR ---
PT ASSESSMENT COMPLETED AND VSS. MEDS GIVEN ORDERED AND WELL TOLERATED. FALL PRECAUTIONS IN PLACE. PT VERY ANXIOUS AND IMPULSIVE. PT WANTING TO WALK AROUND UNIT. PT STEADY WHEN UP WITH ASST. ANXIETY MEDICATION GIVEN BEFORE BED AND HELPFUL. PT SLEEPING AT THIS TIME. WILL CONTINUE TO MONITOR FREQUENTLY.
[2020-12-10 08:00] VITALS: BP 122/78
--- NOTE | 2020-12-10 12:36 | NUR ---
ASSUMED CARE AT 0700. PATIENT IS ALERT AND ORIENTEDX1-2. PATIENT HAS CONFUSION. PATIENT VICKERS', ASSEMBLER SURGICAL GARMENT ARE EQUAL. LUNGS ARE CLEAR AND DEMINISHED. ABD IS SOFT WITH BSX4. UP TO THE BATHROOM WITH GAIT BELT AND WALKER. PATIENT VOIDED YAJAIRA COLORED URINE. UP IN THE CHAIR FOR MEALS. FAMILY HERE TO VISIT. FALL AND SAFETY PROTOCOLS IN PLACE. DENIES PAIN AT THIS TIME. CONTINUES TO PROGRESS TOWARDS D/C GOALS. WILL CONTINJUE TO MONITER.
[2020-12-10 19:38] VITALS: BP 135/84
--- NOTE | 2020-12-11 00:56 | NUR ---
PT ASSESSMENT COMPLETED AND VSS. MEDS GIVEN ORDERED AND WELL TOLERATED. FALL PRECAUTIONS IN PLACE. PT VERY IMPULSIVE AND WANTING TO WALK WITHOUT ASST. PT DID NOT WANT BED OR CHAIR ALARMS ON. PROVIDED MUCH EMOTIONAL SUPPORT AND EXPLAINED THAT WE HAVE TO USE ALARMS ON THIS FLOOR FOR PT SAFETY. WALKED WITH PATIENT EARLY DURING SHIFT. PTS SON IN TO VISIT. PT SLEEPING WELL AT THIS TIME. WILL CONTINUE TO MONITOR FREQUENTLY.
[2020-12-11 07:15] VITALS: BP 144/80
--- NOTE | 2020-12-11 10:00 | NUR ---
PT SITTING UP IN CHAIR THIS AM. PT DENIES ANY PAIN. PT ORIENTED TO PERSON AND PLACE, UNABLE TO SAY WHAT MONTH IT WAS. PT UP WITH WALKER AND STAND-BY ASSIST. PT HAS BRIEF ON FOR STRESS INCON. PT TOOK MEDS WHOLE WITH THIN WATER.
--- NOTE | 2020-12-11 10:45 | NUR ---
PT CALLED APPROPRIATLY TO USE BATHROOM. PT ESCORTED TO BATHROOM, BRIEF WAS DRY. PT WANTED TO LAY DOWN FOR A LITTLE BEFORE LUNCH.
--- NOTE | 2020-12-11 16:05 | NUR ---
PT SON JUVENCIO WITH DPOA HERE TO VISIT AND BROUGHT A COUPLE OF BOOKS FOR HER TO READ. HE SIGNED ADMIT PAPERWORK.
--- NOTE | 2020-12-11 17:38 | NUR ---
NO SIGNS OF CONFUSION FROM PT AT THIS TIME. PT WAS UP IN CHAIR FOR MOST OF DAY. PT IS IN BED AT THIS TIME LOOKING AT MAGAZINES.
[2020-12-11 19:35] VITALS: BP 124/69
--- NOTE | 2020-12-11 20:21 | NUR ---
PATIENT HAD AN EPISODE OF CONFUSION AROUND 1999. PATIENT GOT UP AND ASKED TO LEAVE TO GO TO HER ROOM. SHE STATED TO STOP THE BULLSHIT AND JUST LET HER GO. THIS NURSE TRIES TO REORIENT HER TO HER PLACE AND SITUATION BUT PATIENT IS ADEMENT ON LEAVING. NURSE SCOUT PROFESSIONAL SPORTS STEPPED IN TO HELP CALM PATIENT DOWN, AND PATIENT'S SON WAS CALLED, PATIENT AGREED TO SIT DOWN AND STAY THE NIGHT. SHE AGREED TO STAY UNTIL SATURDAY WHEN DOCTORS ARE IN TO EVALUATE IF SHE IS ELEGIBLE TO BE DISCHARGED. PRN APRAZOLAM ADMINISTERED. WILL CONTINUE TO MONITOR.
[2020-12-12 05:30] LABS: BASOPHILS 0.9 % (0.0-2.0); EOSINOPHILS 2.7 % (0.0-3.0); HEMATOCRIT 34.2 % (37.0-47.0); HEMOGLOBIN 11.9 gm/dL (12.0-15.0); LYMPHOCYTES 12.2 % (24.0-44.0); MCH 37.1 pg (26.0-34.0); MCHC 34.7 g/dL (28.0-37.0); MCV 106.9 fL (80.0-100.0); MONOCYTES 11.4 % (1.0-8.0); PLATELET COUNT 268 thou/uL (150-400); POLYS 72.8 % (36.0-66.0); RDW 12.8 % (10.5-14.5); WBC 5.5 thou/uL (4.0-11.0)
[2020-12-12 05:41] LABS: CALCIUM 8.9 mg/dL (8.5-10.1); CREATININE 1.2 mg/dL (0.6-1.0); MAGNESIUM 1.9 mg/dL (1.8-2.4); POTASSIUM 3.9 mmol/L (3.5-5.1)
[2020-12-12 07:15] VITALS: BP 136/79
--- NOTE | 2020-12-12 10:47 | NUR ---
ASSUMED CARE AT 0700. PATIENT IS ALERT AND ORIENTED TO SELF. PATIENT HAVING HALLUCINATIONS OVER THE WEEKEND, AND WAS VERY AGITATED. DR. BURK NOTIFIED DR. DALTON RECONSULTED R/T THE ABOVE S/S. PATIENT IS UP IN CHAIR FOR MEALS. PATIENT UP WITH P.T. WITH WALKER IN HALLWAY. FALL AND SAFETY PROTOCOLS IN PLACE. DENIES PAIN AT THIS TIME. CONTINUES TO PROGRESS SLOWLY TOWARDS D/C GOALS. WILL CONTINUE TO MONITER.
--- NOTE | 2020-12-12 19:06 | NUR ---
1800 PATIENT VERY CONFUSED, AGITATED AND DEMANDING TO LEAVE THIS PLACE! PATIENT SPOKE TO HER SON, WHO IS HERE NOW AND PATIENT HAS CALMED DOWN. PLAN FOR DR. DALTON TO SEE PATIENT R/T HALLUCINATIONS AND AGITATION. UP IN THE CHAIR AFTER AMBULATING TO THE BATHROOM TO VOID YAJAIRA COLORED URINE. WILL CONTINUE TO MONITER.
[2020-12-12 19:07] VITALS: BP 150/80
--- NOTE | 2020-12-13 04:28 | NUR ---
ASSUMED CARE AT 1900 OF 12/12. PATIENT IS A&O TO SELF ONLY. SHE SAID SHE WAS NOT GOING TO BE SPENDING THE NIGHT HERE. REORIENTED TO PLACE AND SITUATION, AND WAS EASILY REDIRECTED, AND AGREED TO STAY THE NIGHT. PRN XANAX ADMNIISTERED AT HS. PATIENT APPEARS TO BE SLEEPING THROUGHT THE NIGHT, WOKE UP ONCE TO GO THE BATHROOM. ASSIST OF 1 W/ GB AND WALKER FOR TRANSFERS AND AMBULATIOM. WAS ABLE TO PERFOM ADLS INDEPENDENTLY W/ SUPERVISION BEFORE GOING TO BED. BED ALARM ON AND CALL LIGHT W/IN REACH. WILL CONTINUE TO MONITOR.
[2020-12-13 07:15] VITALS: BP 152/86
--- NOTE | 2020-12-13 09:46 | NUR ---
ASSUMED CARE AT 0700. PATIENT IS ALERT AND ORIENTED X2. PATIENT VICKERS'S, UP WITH WALKER, GAIT BELT AND 1 STAFF. LUNGS ARE CLEAR AND DEMINISHED. ABD IS SOFT WITH BSX4. UP TO THE BR TO HAVE LARGE BM. FALL AND SAFETY PROTOCOLS IN PLACE. DENIES PAIN. CONTINUES TO PROGRESS TOWARDS D/C GOALS. PATIENT HAS SUNDOWNERS DR. DALTON TO SEE TODAY. WILL CONTINUE TO MONITER.
--- NOTE | 2020-12-13 13:32 | NUR ---
Team meeting gets upset and confusion in evening time and bedtime. Speaks with son and clams down when talking on phone . son comes and sit with her and then clams down little. Dr Danielson consulted. supervision to set up with ADL's. 107 adlibs with fww, short distance without equipment. Refrain from drinking alcohol. Moderate cognitive and sever memory. Will need assist with pills and bills. Consider [facility] medication adjustments vs [facility] [place] with increased assistance, hh ( pt, ot, nursing, st, and Sw) . talk with son dpoa. dc on 12/20/20 or sooner if going to [facility].
--- NOTE | 2020-12-13 16:32 | NUR ---
PT IS INCREASING IN CONFUSION, AND ALTHOUGH PLEASANT, IS REQUIRING 1:1 FOR REDIRECTION AND SAFETY, UNABLE TO UNDERSTAND THAT SHE IS NOT APPROVED FOR DISCHARGE TONIGHT.
--- NOTE | 2020-12-13 17:15 | NUR ---
HAD SAVANNAH DISCUSSION WITH PATIENT REGARDING THE REASON WHY SHE CANNOT GO HOME TONIGHT. PT WAS NOT AWARE OF THE SUNDOWNMICHAEL'S DIAGNOSIS, AND ONCE THIS WAS EXPLAINED AND WE DISCUSSED THAT PT'S DOCTORS WERE ADJUSTIMG MEDICATIONS TO HELP, SHE WAS MUCH MORE RECEPTIVE TO THIS PLAN. SHE IS UPSET THAT THIS WAS NOT EXPLAINED TO HER, BUT IS AGREEABLE TO THE PLAN OF CARE AT THIS TIME. HER SON CALLED, AND SHE IS CURRENTLY TALKING WITH HIM ABOUT THESE CONCERNS. SHE VERBALIZED UNDERSTANDING THAT MEDICATION ADJUSTMENTS ARE BEING MADE, AND THAT WE ARE WORKING ON THE DC PLAN, BUT IT WILL NOT BE TONIGHT.
[2020-12-13 19:27] VITALS: BP 150/88
--- NOTE | 2020-12-14 00:35 | NUR ---
PT ASSESSMENT COMPLETED AND VSS. MEDS GIVEN ORDERED AND WELL TOLERATED. FALL PRECAUTIONS IN PLACE. PT REMAINS VERY CONFUSED AND WANTING TO LEAVE THE UNIT. PT VERY IMPULSIVE AND TRYING TO GET UP CONSTANTLY. PROVIDED MUCH EMOTIONAL SUPPORT. PT DID FALL ASLEEP AND RESTING WELL. WILL CONTINUE TO MONITOR FREQUENTLY.
--- NOTE | 2020-12-14 09:57 | NUR ---
ASSUMED CARE AT 0700. PATIENT IS ALERT AND ORIENTED X1-2 , FORGETFUL. PATIENT VICKERS'S, SOAP DRIER OPERATOR ARE EQUAL. LUNGS ARE CLEAR. ABD IS SOFT WITH BSX4. UP TO THE BATHROOM WITH GAIT BELT AND WALKER TO VOID YAJIARA COLORED URINE. PATIENT HAVING SOME ISSUES WITH BEING HERE AND WANTS TO GO HOME. PRN MED GIVEN. UP ON SIDE OF BED FOR BREAKFAST. FALL AND SAFETY [id number] IN PLACE. DENIES PAIN AT THIS TIME. CONTINUES TO PROGRESS SLOWLY TOWARDS D/C GOALS. WILL CONTINUE TO MONITER.
--- NOTE | 2020-12-14 15:58 | NUR ---
Cm spoke with son Alex who stated better to talk with jerome. cm called jerome , [facility] with extra help, [facility], and extra private duty and or [facility] memory care. Refrain from drinking alcohol anymore. Son stated I think we all agree on that is some of why she has problems now . [facility], has question about rest of dcp ,Jerome was seeing someone at work and would call cm back. She from [place] [facility] with [facility]. Will cont. following as needed for dc needs. Anticipated dc 12/20 hh ( pt, ot, st, nursing, bath aid).
[2020-12-14 19:51] VITALS: BP 151/83
--- NOTE | 2020-12-15 05:09 | NUR ---
ASSUMED CARE OF 1900 OF 12/14. PATIENT IS A&O TO SELF. REPORTED THAT SHE NEEDED TO GO TO ANOTHER ROOM BECAUSE THIS WAS NOT HER ROOM. PATIENT IS REORIENTED TO SITUATION AND PLACE, AND THAT SHE WILL BE SPENDING THE NIGHT HERE, SHE AGREED TO CHANGE INTO HER GOWN BUT SHE WAS NOT SURE THAT SHE WILL BE STAYING HERE. PATIENT COOPERATED WITH NURSE ABOUT TAKING MEDICATION AND JUST SPENDING THE NIGH. PRN ALPRAZOLAM ADMINISTERED AT HS. APPEARED TO HAVE HELPED. PATIENT APPEARS TO BE SLEEPING ON HOURLY ROUNDS. STAND BY ASSIST OF 1 USING GB AND WALKER FOR TRANSFER AND AMBULATION. BED ALARM ON. WILL CONTINUE TO MONITOR.
[2020-12-15 08:00] VITALS: BP 141/87
--- NOTE | 2020-12-15 10:24 | NUR ---
PT WALKING WITH THERAPY THIS AM WITH STEADY GAIT. PT ORIENTED TO PERSON AND PLACE. PT LUNGS CLEAR. PT DENIES ANY PAIN. PT HAS BRIEF ON FOR STRESS INCON. PT CHEERFUL WITH STAFF AND SMILING.
--- NOTE | 2020-12-15 15:20 | NUR ---
ADM SEROQUEL 25MG PO FOR SUN-DOWNER PREVENTION. PT USUALLY GETS CONFUSED AND WANTS TO GO HOME IN THE EVENING TIME. PT HAD MEDICATION MORE FREQUENTLY YESTERDAY, FIRST TIME TO GET DOSE TODAY.
[2020-12-15 20:01] VITALS: BP 142/85
--- NOTE | 2020-12-16 02:33 | NUR ---
ASSUMED CARE OF PT AT 1925 ON 12/15/20. PT IS A&O TO SELF & TIME. IS IMPULSIVE & CONFUSED AT TIMES. PT WAS WONDERING THROUGH HALLS AT THE START OF SHIFT. WAS REORIENTED & TAKEN BACK TO ROOM. ALARMS ON. PT SON CAME TO VISIT & PT WAS CALM & APPROPRIATE. IS STABLE. IS UP WITH STANDBY ASSIST, GB, WALKER. FALL PRECAUTION & HOURLY ROUNDING CONTINUED. LABS & VITALS REVIEWED. PT IS ASLEEP. CALL LIGHT WITHIN REACH. IS ACROSS FROM NURSES STATION. WILL CONTINUE TO MONITOR. IS ABLE TO TURN SELF IN BED.
[2020-12-16 08:00] VITALS: BP 123/72
--- NOTE | 2020-12-16 08:45 | NUR ---
PT SITTING UP IN CHAIR AFTER OT, PT LIFTING DUMB SHIN. PT REFUSED LACTULOSE THIS AM. PT TOOK MEDS WHOLE WITH WATER. PT ORIENTED TO PERSON AND PLACE. PT STATED SHE IS EXCITED ABOUT GOING BACK TO HOME WHEN SHE IS DISCHARGED.
--- NOTE | 2020-12-16 10:30 | NUR ---
BOTH SONS ARE VISITING AT THIS TIME.
--- NOTE | 2020-12-16 13:58 | NUR ---
DC 12/20/20 to [facility] with [facility] and private duty. Will cont. dcp as needed for discharge. Will cont. to discuss during weekly team meeting.
--- NOTE | 2020-12-16 14:35 | NUR ---
PT CONFUSED AND WANTING TO CALL SISTER LIZET, PT UNABLE TO CALL NUMBER WITHOUT ASSISTANCE. PT STATED SHE IS FED UP WITH ASSISTED LIVING PEOPLE AND IF SHE IS GETTING TREATED THIS WAY SHE WILL NOT GO. ASKED PT IF SOMEONE CAME TO EVALUATE HER, SHE DIDN'T KNOW. PT HAS BAG OF PERSONAL INFORMATION TIED UP AND SON'S AND SISTER NUMBER IN BAG. ASSISTED PT TO CALLING HER SISTER LIZET. ADM SEROQUEL 25MG PO FOR ANXIETY.
[2020-12-16 20:32] VITALS: BP 146/84
--- NOTE | 2020-12-17 01:57 | NUR ---
PT ASSESSMENT COMPLETED AND VSS. MEDS GIVEN ORDERED AND WELL TOLERATED. FALL PRECAUTIONS IN PLACE. UP TO THE BATHROOM WITH ASST. PT REMAINS VERY CONFUSED AND IMPULSIVE. PT STEADY WHEN UP BUT NEEDS FREQUENT REMINDERS ABOUT WHAT SHE NEEDS TO DO. MILDLY AGITATED AND WANTING TO GO UPSTAIRS TO HER NEW ROOM. PROVIDED MUCH EMOTIONAL SUPPORT. MEDICATION FOR HER CONFUSION AND AGITATION HELPFUL. PT SLEEPING AT THIS TIME. WILL CONTINUE TO MONITOR FREQUENTLY.
[2020-12-17 08:00] VITALS: BP 132/75
--- NOTE | 2020-12-17 16:31 | NUR ---
ASSUMED CARE OF PT AT 0700 THIS MORNING. PT IS A/OX2-3, WITH CONFUSION AND FORGETFUL. SKIN INTACT WITH NO TENTING. SB ASST WITH WALKER AND GB. ASSESSMENTS CHARTED AND OTHERWISE UNREMARKABLE. CALL LIGHT AND OTHER NEEDS ARE WITHIN REACH. MEDS AND TX GIVEN NEEDED AND SCHEDULED. WILL MONITOR PT AND NOTE ANY CHANGES.
[2020-12-17 23:00] VITALS: BP 138/69
--- NOTE | 2020-12-18 02:23 | NUR ---
PT ASSESSMENT COMPLETED AND VSS. MEDS GIVEN ORDERED AND WELL TOLERATED. FALL PRECAUTIONS IN PLACE. PT VERY AGITATED THIS EVENING. PROVIDED MUCH EMOTIONAL SUPPORT. PT WAS YELLING GET OUT OF MY ROOM. I WILL WALK ON MY OWN. I DO NOT NEED YOU. I AM LEAVING. GAVE PRN MEDICATION FOR AGITATION. HELPFUL. SLEEPING WELL AT THIS TIME. WILL CONTINUE TO MONITOR FREQUENTLY.
[2020-12-18 07:15] VITALS: BP 136/90
--- NOTE | 2020-12-18 08:10 | NUR ---
PT RECIEVED SEROQUEL 25MG PO TO START THE DAY, PT HAD A RESTLESS MOLLY WITHOUT SEROQUEL.
--- NOTE | 2020-12-18 09:07 | HC ---
[facility] [place] [address] CONSULTATION Name: INDY GUTIERREZ Room #: 514-P [facility] IN M.R.#: [id number] Admission: 12/06/20 Attend Phys: Alex Garcia MD Discharge: Date of : 43 Report #: [id number] THIS REPORT FOR: cc: Daniel Sol MD, Neal A. MD Deutch,Daniel Cortez. PhD ~ DATE OF SERVICE: 12/11/2020 NEUROBEHAVIORAL STATUS EXAMINATION ATTENDING PHYSICIAN: Alex Garcia MD TRAIN OPERATOR: Daniel Mcgrath, PhD CLINICAL PRESENTATION: The patient is a 75-year-old female who was initially admitted to the [facility] on 12/01/2020 due to falls. She had one fall in which she hit her head, but did not have a loss of consciousness. A CT scan of her head did not reveal an acute process, but moderate cerebral white matter changes. Her prior level of functioning was reported to be an independent living apartment. A son and daughter along with sister are reported to check in on her. Occasional help with instrumental activities of daily living was reported. Her assessment on admission to the rehabilitation unit was a toxic encephalopathy, presyncopal event with falls, hypertension with orthostatic hypotension, hypothyroidism, dementia, anxiety and depression, hyperlipidemia, anemia, history of alcohol abuse with alcohol withdrawal, and PCM. A complete description of her medical condition and history can be found in her medical record. Neuropsychological consultation was requested to provide assistance in the assessment of cognitive and emotional status and to provide recommendations and services. Prior to this most recent admission, the patient is reported to have been living independently in an apartment at the [facility]. Review of records indicates a conversation with her sister in which the patient is described as having intermittent falls and periods of confusion. Additionally, her son is reported to have expressed concern about her ability to continue to live independently without additional assistance. 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 She has one sister, three brothers and two sons. However, it should be noted that she was a vague historian. Problems include trouble identifying the problems that led to her hospitalization, and awareness of specific dates such as when she had discontinued driving. She reports having been managing her own medication and bills. [facility] [address] [place] [address] CONSULTATION Name: INDY GUTIERREZ Room #: 514-P [facility] IN M.R.#: [id number] Admission: 12/06/20 Attend Phys: Alex Garcia MD Discharge: Date of : 43 Report #: [id number] TECHNIQUES UTILIZED: Clinical interview, review of medical records, staff consultation and behavioral observation, mini mental status exam 2 standard version, verbal fluency assessment and clock drawing. EXAMINATION FINDINGS: The patient was alert and cooperative with the assessment. She did not present with an aphasia. However, she had difficulty remembering details regarding her condition and purpose of hospitalization. She lacks insight as she does not identify experiencing any problems with cognition, mood, or behavior. Reportedly, the patient has had excessive use of alcohol. However, she denies alcohol abuse. The patient underwent a neuropsychological status exam in 2019 and at that time had been binge drinking with suspected alcoholic hepatitis. Currently, there is no report of auditory or visual hallucinations. She does not report difficulty with sleep, appetite, anxiety, depression or memory. However, the patient did require use of the orientation board when answering questions of date and time. Her performance on the MMSE 2 brief version was in the impaired range with a raw score of 12-16. She was 3/3 for initial registration, 5/5 for orientation to time, although she indicated having relied on the orientation board in her room. Orientation to place was 3/5. She was 1/3 for immediate recall of 3 items after a brief time delay and distraction. Performance on the MMSE 2 standard version was in the borderline range with a raw score of 23, T score of 31, and percentile rank of 3. She was 2/5 for serial sevens, 2/2 for naming, 1/1 for repetition, 3/3 for auditory comprehension. She could read and follow a single command and copy a simple geometric design. She was able to write a sentence. Letter fluency was in the average range with a raw score of 16 and a T score of 32. Category fluency was extremely low with a raw score of 12 and a T score of 19. Overall, total fluency was extremely low with a T score of 19 and percentile rank of 1. Clock drawing was within normal limits. The patient is presenting with severe deficits in neurocognitive functioning. Impairment is suggested in sustained concentration, immediate recall and executive functioning. Decreased insight into deficits is likely. Denial of alcohol use is also suggested. DIAGNOSTIC IMPRESSION: Major neurocognitive disorder (dementia), unspecified with decreased insight [facility] [address] [place] [address] CONSULTATION Name: INDY GUTIERREZ Room #: 514-P [facility] IN M.R.#: [id number] Admission: 12/06/20 Attend Phys: Alex Garcia MD Discharge: Date of : 43 Report #: [id number] -- severity to be determined, but likely in the [id number] range. Alcohol use disorder -- persistent. Unspecified anxiety disorder. RECOMMENDATIONS: The patient is likely to require supervision and structure in order to maintain safety. Assistance in the management of medication finances and nutrition is recommended. Alcohol use should be discontinued. A followup neuropsych assessment can help clarify the severity of neurocognitive deficits, approximately 3-4 months post-hospitalization. Psychiatric consultation for problems with behavior if necessary. Thank you very much for allowing me to provide the consultation on this patient. <ELECTRONICALLY SIGNED> By: Daniel Mcgrath, PhD 12/18/20 [id number] Daniel Mcgrath, PhD /nt
--- NOTE | 2020-12-18 14:15 | NUR ---
ADM SEROQUEL 25MG PO FOR PREVENTION OF SUNDOWNER BEHAVIOR.
--- NOTE | 2020-12-18 15:00 | NUR ---
SON CRISTAL HERE TO SEE PT. PT CALM WHEN FAMILY VISITING AND DOESN'T SHOW ANY CONFUSION.
[2020-12-18 19:56] VITALS: BP 147/87
--- NOTE | 2020-12-19 01:32 | NUR ---
PT ASSESSMENT COMPLETED AND VSS. MEDS GIVEN ORDERED AND WELL TOLERATED. PRN AGITATION MEDICATION HELPFUL. PT UP TO THE BATHROOM WITH ASST/GAIT/WALKER. STEADY. VOIDING MODERATED ABOUT OF YELLOW URINE. ASST WITH REPOSITION FOR COMFORT. SLEEPING WELL. WILL CONTINUE TO MONITOR FREQUENTLY.
[2020-12-19 07:08] LABS: CALCIUM 8.7 mg/dL (8.5-10.1); CREATININE 1.2 mg/dL (0.6-1.0); MAGNESIUM 2.1 mg/dL (1.8-2.4); POTASSIUM 3.8 mmol/L (3.5-5.1)
[2020-12-19 07:09] LABS: MCH 36.8 pg (26.0-34.0); MCHC 34.4 g/dL (28.0-37.0); MCV 106.9 fL (80.0-100.0); RDW 12.7 % (10.5-14.5); WBC 3.1 thou/uL (4.0-11.0)
[2020-12-19 08:00] VITALS: BP 119/67
--- NOTE | 2020-12-19 08:38 | PLAN ---
[facility] [place] [address] REHAB UNIT PLAN OF CARE Name: INDY GUTIERREZ Room #: 514-P ADM IN M.R.#: [id number] Admission: 12/06/20 Attend Phys: Alex Garcia MD Discharge: Date of : 43 Report #: [id number] THIS REPORT FOR: cc: Daniel Sol MD, Neal A. MD Smithson,Alex Donaldson MD ~ DATE OF SERVICE: 12/07/2020 HISTORY OF PRESENT ILLNESS: The patient is seen back today in followup. She is in no distress. Last recorded temperature of 36.3, pulse 71, respirations 20, blood pressure 135/85. She was in no distress. No focal calf swelling. She has been working in therapies. She has been max assist coming to stand with mod assist, ambulated short distance with a front-wheeled walker. Upper body dressing is min assist, lower body dressing is mod assist. She is using the walker for short distance ambulation and to assist with balance. She does tend to fatigue fairly quickly. Speech therapy is involved, seeing her as well. ASSESSMENT: 1. Toxic encephalopathy. 2. Presyncopal events with falls. 3. Hypertension with orthostatic hypotension. 4. Hypothyroidism. 5. Depression and anxiety with a history of dementia per chart review. 6. Hyperlipidemia. 7. Anemia, iron deficiency. 8. History of ETOH abuse with ETOH withdrawal. 9. Protein calorie malnutrition. PLAN: The overall plan of care is based on the pre-admission screen and information garnered from therapy assessments. 1. Estimated length of stay is probably around 14 days. 2. Medical prognosis reasonably good. 3. Anticipated interventions include the interdisciplinary acute inpatient rehabilitation program. 4. Anticipated functional outcomes would be for the patient to improve as far as transfers, mobility, ADLs, cognition, so that she can hopefully return back to the home setting. 5. Discharge destination would be back to the home setting where she lives in an independent living apartment alone. 6. Expected therapy by discipline includes PT, OT and speech, 1 hour per day each five days a week throughout the duration of the acute inpatient rehabilitation stay. ADDENDUM: The patient's prognosis for significant practical improvement within a reasonable period of time appears good. Given the patient's complex medical condition and risk of further medical complication, rehabilitation services [address] [address] REHAB UNIT PLAN OF CARE Name: INDY GUTIERREZ Room #: 514-P [facility] IN M.R.#: [id number] Admission: 12/06/20 Attend Phys: Alex Garcia MD Discharge: Date of : 43 Report #: [id number] could not be safely provided at a lower level of care such as a fci facility. <ELECTRONICALLY SIGNED> By: Alex Garcia MD 12/19/20 [id number] Alex Garcia MD /nt
--- NOTE | 2020-12-19 10:00 | NUR ---
PT WORKING WITH THERAPY AT THIS TIME. PT STEADY ON FEET. PT DOES USE CALL LIGHT WHEN NEEDING TO GET UP. PT HAVING MEETING WITH BENEFITS OF HOME AND HER SONS FOR INCREASED ASSITANCE FOR HOME. PT EXCITED TO BE ABLE TO BE GOING HOME. PT USES WALKER WHEN AMBULATING. PT CHEERFUL THIS AM. PT TAKES MEDS WHOLE WITH WATER.
--- NOTE | 2020-12-19 14:49 | NUR ---
ADM SEROQUEL 25MG PO FOR PRE-SUNDOWNERS BEHAVIOR. PT COMPLAINED OF SOME DISCOMFORT TO RT TOE ON RT FOOT. PT STATED SHE MIGHT NEED TO SOAK HER FOOT.
--- NOTE | 2020-12-19 16:00 | NUR ---
PT SISTER LIZET VISITED. PT SEEMS CALM AND ACCEPTING OF BEING HERE.
[2020-12-19 19:40] VITALS: BP 158/95
[2020-12-19 21:00] VITALS: BP 146/62
--- NOTE | 2020-12-20 01:56 | NUR ---
PT ASSESSMENT COMPLETED AND VSS. MEDS GIVEN ORDERED AND WELL TOLERATED. FALL PRECAUTIONS IN PLACE. PT UP TO THE BATHROOM WITH ASST/GAIT/WALKER. PT DENIES NEEDS. SLEEPING WELL. WILL CONTINUE TO MONITOR FREQUENTLY.
[2020-12-20 07:15] VITALS: BP 131/75
[2020-12-20 08:32] VITALS: BP 146/62
[2020-12-20] MEDS ORDERED: SEROQUEL 50 MG50 MG PO (09:53)
[2020-12-20] MEDS ORDERED: SEROQUEL 25 MG25 M1 PO (09:53)
--- NOTE | 2020-12-20 10:16 | NUR ---
ASSUMED CARE AT 0700. PATIENT IS ALERT AND ORIENTED TO PERSON, WITH CONFUSION AND FORGETFULNESS. PATIENT IS PLEASANT AND COOPERATIVE THIS A.M. PATIENT VICKERS'S, [employer]FT [employer] ME[employer] ARE EQUAL. LUNGS ARE CLEAR. ABD IS SOFT WITH BSX4. UP TO THE BATHROOM WITH ASSIST OF 1 STAFF WITH GAIT BELT AND WALKER. UP ON SIDE OF BED FOR MEALS. FALL AND SAFETY PROTOCOLS IN PLACE. DENIES PAIN AT THIS TIME. CONTINUES TO PROGRESS TOWARDS D/C GOALS. PLAN D/C TO THE FORUM WITH PRIVATE DUTY. WILL CONTINUE TO MONITER.
[2020-12-20 12:31] VITALS: BP 146/62
--- NOTE | 2020-12-20 13:36 | NUR ---
team meeting, cont. with dc to [place] forum, interim hh and benefits at home, private duty today.
--- NOTE | 2020-12-20 14:20 | NUR ---
DISCHARGE INSTRUCTIONS GIVEN TO SISTER MATTEO. SON IS TO STAY WITH HER THE NEXT FEW DAYS. THE SISTER WILL OBTAIN HER PRESCRIPTIONS FROM [employer]. PATIENT LEFT THE UNIT IN GOOD CONDITION PER W/C WITH ALL OF HER BELONGINGS, D/C INSTRUTIONS AND FAMILY IN ATTENDANCE. PATIENT WAS ABLE TO TRANSFER FROM BED TO W/C INDEPENDENTLY, AND FROM THE W/C TO THE CAR INDENPENTLY.
== END 2020-12-20 14:25 | disposition home health service (06) | DRG 92 ==
PROVIDERS: Nurse Practitioner; Nurse Practitioner Family; ADMIT Physical Medicine & Rehabilitation; ATTEND Physical Medicine & Rehabilitation
DX: G92 Toxic encephalopathy (principal); E46 Unspecified protein-calorie malnutrition; N17.9 Acute kidney failure, unspecified; R44.3 Hallucinations, unspecified; F05 Delirium due to known physiological condition; I95.1 Orthostatic hypotension; E03.9 Hypothyroidism, unspecified; F32.9 Major depressive disorder, single episode, unspecified; F41.9 Anxiety disorder, unspecified; F03.90 Unspecified dementia, unspecified severity, without behavioral disturbance, psychotic disturbance, mood disturbance, and anxiety; E78.5 Hyperlipidemia, unspecified; D50.9 Iron deficiency anemia, unspecified; Z68.25 Body mass index [BMI] 25.0-25.9, adult; I12.9 Hypertensive chronic kidney disease with stage 1 through stage 4 chronic kidney disease, or unspecified chronic kidney disease; N18.9 Chronic kidney disease, unspecified; E87.6 Hypokalemia; Z20.822 Contact with and (suspected) exposure to COVID-19; I27.20 Pulmonary hypertension, unspecified; R26.89 Other abnormalities of gait and mobility; R53.81 Other malaise; Z98.41 Cataract extraction status, right eye; Z98.42 Cataract extraction status, left eye; Z87.891 Personal history of nicotine dependence; Z91.81 History of falling
CPT/HCPCS: 10112